=== PATIENT | male | born 1925 | race Caucasian/White ===

== ENCOUNTER 2016-09-28 15:31 | Inpatient (IN) | payer OTHER ==
[~2016-09-28] VITALS: Ht 188 cm; Wt 89.5 kg
[2016-09-28] MEDS ORDERED: SODIUM CHLORIDE 0.9% 1000ML 1,000 ML IV SCH ×3 (15:44→23:30)
[2016-09-28] MEDS ORDERED: AMLO-110 (16:09)
[2016-09-28] MEDS ORDERED: GLIP2.5T11 (16:09)
[2016-09-28] MEDS ORDERED: ACT30 (16:09)
[2016-09-28] MEDS ORDERED: METO25TA56 (16:09)
[2016-09-28] MEDS ORDERED: ACET325T96 PO (16:09)
[2016-09-28] MEDS ORDERED: SIMV10TA2 (16:09)
[2016-09-28] MEDS ORDERED: LISI10TA (16:09)
[2016-09-28] MEDS ORDERED: IBUP-103 PO (16:09)
[2016-09-28] MEDS ORDERED: FURO20TA (16:09)
[2016-09-28] MEDS ORDERED: POTA10CA28 (16:09)
[2016-09-28] MEDS ORDERED: HYT/2 (16:09)
--- NOTE | 2016-09-28 16:10 | EMERGENCY ROOM VISIT NOTE ---
History Report prepared by Kt: Oly Hobbs Under the Supervision of: Dr. Rio West M.D. First contact with patient: 15:39 Chief Complaint: UNRESPONSIVE Stated Complaint: ALTERED MENTAL STATUS History of Present Illness The patient is an 88 year old male who presents to the Emergency Room with AMS. EMS reports that he was found today by his son at around 1330 on the floor of his home. The patient lives home alone after he was 4 months ago. His son notes that he had been doing well lately. Yesterday at 2030, the patient's sister saw the patient at which time he was well and acting normally. The patient's son went to visit him today and looked through the window to see he was unconscious. He called EMS and they broke down the door and brought him to the ED. The EMS note that he was unresponsive and in rapid A fib. He was incontinent. His sugar was found to be in the 500s. According to the son, he has a history of type 2 diabetes and he sometimes does not take his medications. The history is limited due to the patient's AMS. 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 Past Medical & Surgical Medical Problems: (1) Acute ischemic stroke (2) Diabetes mellitus Family History Noncontributory secondary to age. Social History Marital Status: Housing Status: lives alone Occupation Status: retired Current/Historical Medications Scheduled PRN Acetaminophen Tab (Tylenol), 650 MG PO Q6 PRN for Pain Ibuprofen Tab (Advil), 200-600 MG PO Q4H PRN for Pain Miscellaneous Medications Amlodipine (Norvasc) Furosemide (Lasix) Glipizide (Glipizide Er) Lisinopril (Prinivil) Metoprolol Tartrate (Lopressor) (Lopressor) Pioglitazone (Actos) Potassium Chloride (Micro-K Ext Rel) Simvastatin (Zocor) Terazosin Hcl (Hytrin) Allergies Coded Allergies: No Known Allergies (Unverified , 09/28/16) Physical Exam Vital Signs Date Time Temp Pulse Resp B/P (MAP) Pulse Ox O2 Delivery O2 Flow Rate FiO2 09/28/16 18:16 113 17 145/94 98 09/28/16 18:11 114 22 95 09/28/16 18:06 121 16 97 09/28/16 18:01 111 15 97 09/28/16 17:56 111 16 97 09/28/16 17:51 113 12 95 09/28/16 17:46 94 16 96 09/28/16 17:41 111 21 97 09/28/16 17:36 117 19 94 09/28/16 17:32 146/83 09/28/16 17:31 105 17 98 09/28/16 17:26 116 22 97 09/28/16 17:21 108 22 97 09/28/16 17:16 107 18 97 09/28/16 17:11 107 15 97 09/28/16 17:06 108 10 97 09/28/16 17:02 154/100 09/28/16 17:01 116 23 97 09/28/16 16:56 113 19 97 09/28/16 16:51 105 16 98 09/28/16 16:46 104 17 97 09/28/16 16:41 120 14 98 09/28/16 16:37 146/95 09/28/16 16:36 103 17 96 09/28/16 16:31 110 17 97 09/28/16 16:26 112 18 96 09/28/16 16:21 106 17 96 09/28/16 16:16 118 18 96 09/28/16 16:16 107 09/28/16 16:07 151/115 09/28/16 16:06 110 16 151/115 96 Room Air 09/28/16 15:40 96 Room Air 09/28/16 15:40 37.7 124 18 168/101 98 Room Air Physical Exam GENERAL: Patient is awake, no response to verbal stimuli. SKIN: No erythema, pallor, cyanosis or rash. Small abrasion to the right hip. HEENT: Normal head, pupils equal, reactive to light and accommodation. Left gaze preference. Oral cavity and posterior pharynx appear normal. Neck: Without adenopathy, no neck vein distention. LUNGS: Clear to auscultation. No wheezes, no rales, no rhonchi. HEART: No murmurs. No gallops. No rubs ABDOMEN: No masses, no rebound, no hepatomegaly or splenomegaly. EXTREMITIES: 2-3 day old abrasion to the right foot, abrasion to the right knee. No pedal or pretibial edema. NEUROLOGIC: Right facial paralysis. Flaccid right arm and right leg, minimal movement of left arm and left leg. Medical Decision & Procedures ER Provider Diagnostic Interpretation: Radiology results as stated below per my review and radiologist interpretation: HEAD CT NONCONTRAST CT DOSE: 537.48 mGy.cm HISTORY: Altered mental status. Stroke TECHNIQUE: Multiaxial CT images of the head were performed without the use of intravenous contrast. Automated exposure control was utilized for this study. Comparison: None. Findings: Mild mucosal thickening within the right maxillary sinus and ethmoid air cells. The mastoid air cells are clear. The calvarium and skull base are intact. Right-sided scalp and facial subcutaneous edema or swelling. Small hypodensity within the left posterior occipital lobe likely represents an old infarct. No acute hemorrhage. Hypodensity within the left basal ganglia, left internal capsule, and left subinsular cortex which extend into the left posterior frontal lobe. This is consistent with a acute to subacute left MCA territory infarct. No acute hemorrhage identified. Mild mass effect along the left lateral ventricle. No significant midline shift. Impression: 1. Hypodense area within the left frontotemporal region and left basal ganglia consistent with an acute to subacute left MCA territory infarct. 2. Small old infarct within the left occipital lobe. 3. No acute hemorrhage identified. 4. Right scalp/facial subcutaneous edema/swelling. Electronically signed by: Saman Hood M.D. 09/28/2016 4:18 PM Dictated Date/Time: 09/28/2016 4:13 PM Laboratory Results 09/28/16 16:10 Red Blood Count 5.00, Mean Corpuscular Volume 91.0, Mean Corpuscular Hemoglobin 31.8, Mean Corpuscular Hemoglobin Concent 34.9, Mean Platelet Volume 11.3, Neutrophils (%) (Auto) 90.3, Lymphocytes (%) (Auto) 5.0, Monocytes (%) (Auto) 4.3, Eosinophils (%) (Auto) 0.0, Basophils (%) (Auto) 0.1, Neutrophils # (Auto) 13.77, Lymphocytes # (Auto) 0.76, Monocytes # (Auto) 0.66, Eosinophils # (Auto) 0.00, Basophils # (Auto) 0.01 09/28/16 16:10 Test 09/28/16 15:59 09/28/16 16:10 09/28/16 17:35 Bedside Prothrombin Time INR 1.2 (0.9-1.1) White Blood Count 15.24 K/uL (4.8-10.8) Red Blood Count 5.00 M/uL (4.7-6.1) Hemoglobin 15.9 g/dL (14.0-18.0) Hematocrit 45.5 % (42-52) Mean Corpuscular Volume 91.0 fL (80-100) Mean Corpuscular Hemoglobin 31.8 pg (25-34) Mean Corpuscular Hemoglobin Concent 34.9 g/dl (32-36) Platelet Count 199 K/uL (130-400) Mean Platelet Volume 11.3 fL (7.4-10.4) Neutrophils (%) (Auto) 90.3 % Lymphocytes (%) (Auto) 5.0 % Monocytes (%) (Auto) 4.3 % Eosinophils (%) (Auto) 0.0 % Basophils (%) (Auto) 0.1 % Neutrophils # (Auto) 13.77 K/uL (1.4-6.5) Lymphocytes # (Auto) 0.76 K/uL (1.2-3.4) Monocytes # (Auto) 0.66 K/uL (0.11-0.59) Eosinophils # (Auto) 0.00 K/uL (0-0.5) Basophils # (Auto) 0.01 K/uL (0-0.2) RDW Standard Deviation 43.6 fL (36.4-46.3) RDW Coefficient of Variation 13.1 % (11.5-14.5) Immature Granulocyte % (Auto) 0.3 % Immature Granulocyte # (Auto) 0.04 K/uL (0.00-0.02) Prothrombin Time 11.4 SECONDS (9.0-12.0) Prothromb Time International Ratio 1.1 (0.9-1.1) Activated Partial Thromboplast Time 30.6 SECONDS (21.0-31.0) Partial Thromboplastin Ratio 1.2 Urine Color YELLOW Urine Appearance CLOUDY (CLEAR) Urine pH 5.0 (4.5-7.5) Urine Specific Wrens 1.026 (1.000-1.030) Urine Protein 2+ (NEG) Urine Glucose (UA) 3+ (NEG) Urine Ketones 1+ (NEG) Urine Occult Blood 3+ (NEG) Urine Nitrite NEG (NEG) Urine Bilirubin NEG (NEG) Urine Urobilinogen NEG (NEG) Urine Leukocyte Esterase SMALL (NEG) Urine WBC (Auto) >30 /hpf (0-5) Urine RBC (Auto) 5-10 /hpf (0-4) Urine Hyaline Casts (Auto) 5-10 /lpf (0-5) Urine Epithelial Cells (Auto) 10-20 /lpf (0-5) Urine Bacteria (Auto) 4+ (NEG) Anion Gap 11.0 mmol/L (3-11) Estimated GFR () 34.0 Estimated GFR (Non- 29.3 BUN/Creatinine Ratio 15.2 (10-20) Calcium Level 9.3 mg/dl (8.5-10.1) Total Creatine Kinase 1681 U/L (39-308) Creatine Kinase MB 14.2 ng/ml (0.5-3.6) Creatine Kinase MB Ratio 0.8 (0-3.0) Troponin I 0.016 ng/ml (0-0.045) Beta-Hydroxybutyric Acid 6.79 mg/dL (0.2-2.81) Bedside Glucose 272 mg/dl (70-99) Laboratory results as stated above per my review. Medications Administered Medications (Trade) Dose Ordered Sig/Tova Route Start Time Stop Time Status Last Admin Dose Admin Sodium Chloride 1,000 ml @ 50 mls/hr Q20H IV 09/28/16 15:44 10/28/16 15:43 09/28/16 16:27 50 MLS/HR Insulin Human Regular (novoLIN-R U-100 PER UNIT) 10 units NOW STAT SC 09/28/16 16:43 09/28/16 16:44 DC 09/28/16 16:53 10 UNITS Ceftriaxone Sodium (Rocephin Inj) 1 gm NOW STAT IV 09/28/16 17:20 09/28/16 17:22 DC 09/28/16 17:43 1 GM ECG Indication: altered mental status Rate (beats per minute): 132 Rhythm: atrial fibrillation Findings: no acute ischemic change, other (no PVC) ED Course 1540: Past medical records reviewed. The patient was evaluated in room C7. A complete history and physical examination was performed. 1544: NSS 1000 ml @ 50 mls/hr IV. 1643: Insulin Human Regular 10 units SC. 1646: I reevaluated the patient. I spoke with the family about the results and treatment plan. They verbalized understanding and agreement. The patient will be evaluated for further management. 1718: I discussed the patient's case with Vianca Yadav. The patient will be evaluated for further management. 1720: Rocephin Inj 1 gm IV. Medical Decision Nurses notes reviewed. Differential diagnosis includes but is not limited to: TIA, CVA, diabetes out of control, DKA, metabolic disorder, hemorrhagic stroke, brain neoplasm. Medication Reconciliation: I attest that I have personally reviewed the patient' s current medication list. Blood Pressure Screening: Patient was found to have an elevated blood pressure and will follow up with the dividend clerk for recheck and further treatment. The patient was found down in his home earlier today. He arrived approximately 19 hours after his last well-known time. The patient may have eaten breakfast this morning but that remains uncertain. The patient has left gaze preference. He has no movement of his right arm and right leg. He also appears to have a right facial droop. The patient does not respond to verbal command. CT reveals a basilar acute versus subacute stroke. Multiple labs, EKG and urinalysis were performed. The patient also appears to have urinary tract infection. His blood sugar is significantly elevated. He was given subcutaneous insulin. The patient had blood cultures performed prior to administration of Rocephin. I discussed care with the patient's family and with the hospitalist. Consults Time Called: 1710 Consulting Physician: Vianca Yadav jennifer Returned Call: 1718 I discussed the patient's case with her. The patient will be evaluated for further management. Impression Primary Impression: CVA (cerebral vascular accident) Additional Impressions: Diabetes mellitus out of control UTI (urinary tract infection) Critical Care I have personally spent greater than 35 minutes of critical care time in the direct management of this patient. This includes bedside care, interpretation of diagnostic studies, and testing, discussion with consultants, patient, and family members, and other required patient management activities. This 35 minutes is in excess of all separately billable procedures. Scribe Attestation The scribe's documentation has been prepared under my direction and personally reviewed by me in its entirety. I confirm that the note above accurately reflects all work, treatment, procedures, and medical decision making performed by me. Departure Information Dispostion Being Evaluated By Hospitalist Patient Instructions My [facility] Stroke History Time Last Known Well 2030 Stroke t-PA Criteria Reviewed Does NOT meet criteria for t-PA Reason t-PA Not Given Treatment not indicated Extended Window (3-4.5 hour) History of diabetes AND stroke Problem Qualifiers
--- NOTE | 2016-09-28 16:19 | DIAGNOSTIC IMAGING REPORT ---
HEAD CT NONCONTRAST CT DOSE: 537.48 mGy.cm HISTORY: Altered mental status. Stroke TECHNIQUE: Multiaxial CT images of the head were performed without the use of intravenous contrast. Automated exposure control was utilized for this study. Comparison: None. Findings: Mild mucosal thickening within the right maxillary sinus and ethmoid air cells. The mastoid air cells are clear. The calvarium and skull base are intact. Right-sided scalp and facial subcutaneous edema or swelling. Small hypodensity within the left posterior occipital lobe likely represents an old infarct. No acute hemorrhage. Hypodensity within the left basal ganglia, left internal capsule, and left subinsular cortex which extend into the left posterior frontal lobe. This is consistent with a acute to subacute left MCA territory infarct. No acute hemorrhage identified. Mild mass effect along the left lateral ventricle. No significant midline shift. Impression: 1. Hypodense area within the left frontotemporal region and left basal ganglia consistent with an acute to subacute left MCA territory infarct. 2. Small old infarct within the left occipital lobe. 3. No acute hemorrhage identified. 4. Right scalp/facial subcutaneous edema/swelling. Electronically signed by: Saman Hood M.D. 09/28/2016 4:18 PM Dictated Date/Time: 09/28/2016 4:13 PM
[2016-09-28 16:23] LABS: BASO % 0.1 %; BASO ABS # 0.01 K/uL (0-0.2); COMPLETE YES; HEMATOCRIT 45.5 % (42-52); IG% 0.3 %; LYMPH ABS # 0.76 K/uL (1.2-3.4); MEAN CORPUSCULAR HEMOGLOBIN 31.8 pg (25-34); MEAN CORPUSCULAR HGB CONC 34.9 g/dl (32-36); MEAN PLATELET VOLUME 11.3 fL (7.4-10.4); MONO % 4.3 %; NEUT % 90.3 %; PLATELET COUNT 199 K/uL (130-400); WHITE BLOOD COUNT 15.24 K/uL (4.8-10.8)
[2016-09-28 16:33] LABS: INR 1.1 (0.9-1.1); PARTIAL THROMBOPLASTIN RATIO 1.2; PROTHROMBIN TIME (PATIENT) 11.4 SECONDS (9.0-12.0)
[2016-09-28 16:39] LABS: BLOOD UREA NITROGEN 30 mg/dl (7-18); BUN/CREATININE RATIO 15.2 (10-20); CALCIUM 9.3 mg/dl (8.5-10.1); CARBON DIOXIDE 23 mmol/L (21-32); CHLORIDE 105 mmol/L (98-107); GLUCOSE 311 mg/dl (70-99); POTASSIUM 4.7 mmol/L (3.5-5.1); SODIUM 139 mmol/L (136-145)
[2016-09-28 16:42] LABS: URINE APPEARANCE CLOUDY (CLEAR); URINE BILIRUBIN NEG (NEG); URINE COLOR YELLOW; URINE NITRITE NEG (NEG); URINE SPECIFIC GRAVITY 1.026 (1.000-1.030); UROBILINOGEN NEG (NEG)
[2016-09-28] MEDS ORDERED: NovoLIN-R INSULIN PER UNIT CHARGE SC STA (16:43)
[2016-09-28 16:47] LABS: MANUAL MICROSCOPIC REQUIRED? NO; REVIEW REQ? NO
[2016-09-28 16:53] LABS: BETA-HYDROXYBUTYRATE 6.79 mg/dL (0.2-2.81); CKMB/CK RATIO 0.8 (0-3.0)
[2016-09-28] MEDS ORDERED: CEFTRIAXONE SOD INJ 1 GM ADDVIAL IV STA (17:20)
[2016-09-28 19:41] VITALS: BP 161/97; PULSE 136; TEMP 36.6; O2SAT 97; BMI 24.2
[2016-09-28] MEDS ORDERED: PHARMACIST DISCHARGE MED REC CONSULT PRN (20:30)
[2016-09-28] MEDS ORDERED: ASPIRIN 300 MG SUPP PR STA (20:34)
[2016-09-28] MEDS ORDERED: PHARMACY GLYCEMIC MGMT CONSULT SCH (20:41)
[2016-09-28] MEDS ORDERED: DEXTROSE 50% 50 ML SYR IV PRN (20:45)
[2016-09-28] MEDS ORDERED: GLUCOSE 40% GEL 15 GM TUBE PO PRN (20:45)
[2016-09-28] MEDS ORDERED: GLUCAGON FOR INJ 1 MG VIAL SQ PRN (20:45)
[2016-09-28] MEDS ORDERED: GLUCOSE 10 TABS/TUBE PO PRN (20:45)
[2016-09-28] MEDS ORDERED: INSULIN ASPART 100 UNITS/ML 3 ML PEN SC SCH (21:00)
--- NOTE | 2016-09-28 22:04 | Pharmacy Progress Note ---
Glycemic Control Intl Consult Date of Service Sep 28, 2016. Scope Glycemic Pharmacist consulted by Dr Bowling on 09/28/16 for glycemic control and to write orders per [facility] inpatient glycemic control protocol Objective Weight (Kilograms): 85.400 Accuchecks BSG (last 24hrs): Test 09/28/16 15:52 09/28/16 16:10 09/28/16 17:35 09/28/16 21:01 Bedside Glucose 435 mg/dl (70-99) 272 mg/dl (70-99) 250 mg/dl (70-99) Random Glucose 311 mg/dl (70-99) Laboratory Data (last 24hrs) Test 09/28/16 16:10 09/28/16 16:19 Anion Gap 11.0 mmol/L BUN/Creatinine Ratio 15.2 Blood Urea Nitrogen 30 mg/dl Creatinine 2.00 mg/dl Potassium Level 4.7 mmol/L Sodium Level 139 mmol/L White Blood Count 15.24 K/uL Red Blood Count 5.00 M/uL Hemoglobin 15.9 g/dL Hematocrit 45.5 % Mean Corpuscular Volume 91.0 fL Mean Corpuscular Hemoglobin 31.8 pg Mean Corpuscular Hemoglobin Concent 34.9 g/dl Platelet Count 199 K/uL Mean Platelet Volume 11.3 fL Neutrophils (%) (Auto) 90.3 % Lymphocytes (%) (Auto) 5.0 % Monocytes (%) (Auto) 4.3 % Eosinophils (%) (Auto) 0.0 % Basophils (%) (Auto) 0.1 % Neutrophils # (Auto) 13.77 K/uL Lymphocytes # (Auto) 0.76 K/uL Monocytes # (Auto) 0.66 K/uL Eosinophils # (Auto) 0.00 K/uL Basophils # (Auto) 0.01 K/uL HbA1c Test 09/28/16 16:19 Recent Pertinent Medications Outpatient Anti-diabetic Regimen: * glipizide 10 mg bidm, Actos 15 mg daily (patient doesn't always remember to take) * A1c = pending 09/28/16 The patient is currently receiving: * Basal insulin: none at this time * Correctional Insulin: Novolog Correction per scale ACHS Goal Range: Low 100 mg/dL - High 140 mg/dL Correction Factor: 50 mg/dL/unit * Prandial insulin: Per carb ratio of 1 unit per 16 grams CHO consumed * Oral Agents: none Risk Factors for Insulin Resistance: * Steroids: no * Infection: UTI, on Rocephin * Pressors: no * IVF: NS @100 ml/hr * Recent Surgery: no * Diet: npo * Mechanical Ventilation: no Assessment & Plan ASSESSMENT: * ADA & AACE recommend a goal blood sugar range 140-180 mg/dl for the majority of critically ill & non-critically ill patients. However, more stringent targets may be selected in individual cases. * 88 yo type 2 diabetic, admitted with stroke, hyperglycemia, UTI. A1c pending to assess recent glycemic control. Will hold po antidiabetics, and start weight- based Novolog coverage. Will reassess in am. PLAN FOR INPATIENT GLYCEMIC CONTROL: * Holding outpatient oral diabetes medications * No Basal insulin at this time * Correctional Insulin with NOVOLOG per scale ACHS or Q6hrs while NPO * Goal Range: Low 100 mg/dL - High 140 mg/dL * Correction Factor: 25 mg/dL/unit * Nutritional / Prandial insulin per carb ratio of 1 unit per 9 grams CHO consumed * Please note that the plan above was derived based on current level of insulin resistance and hospital stress. These recommendations are appropriate for inpatient admission only. Plan of care upon discharge will need to be reassessed to avoid potential outpatient hypo/hyperglycemia. Thank you.
[2016-09-28] MEDS: SODIUM CHLORIDE 0.9% 1000ML 1,000 ML IV SCH (22:07)
--- NOTE | 2016-09-28 23:03 | History and Physical ---
History & Physical Date & Time of Service: Sep 28, 2016 at 20:57 Chief Complaint: Acute Ischemic Stroke Primary Care Physician: No Doctor, Assigned History of Present Illness Source: family, hospital records 88 yo M from [facility] who sees physicians at the [facility] in [place] only, and not regularly per son, presents to the ER via EMS after being found down on the floor of his home alert but altered and waving his left arm in the air. He had noticed some urine present on the floor. CT head reveals a left frontotemporal and basal ganglia stroke. Per his oldest son, he was last seen yesterday around 8:30pm until he was found in this condition at 1:30pm the next day (today). He lives alone and had recently lost his in May. Per his son , he is active and was just driving yesterday and was cutting the grass earlier this week. Son states that although his father had diabetes and probably other conditions, he never took medications for anything and chose not to see a doctor. He states that although he went to the [facility] in [place], he was only seen for his eyes and this was a rare occasion. There is a list of medications that was pulled from the cabinet by EMS, however, there are no dosages on the med list. The family suspects that he gets his medications at the [facility] in [facility]. When I called to verify when he last filled meds, they were already closed. Therefore, medication reconciliation was unable to be performed this evening. I also requested records from the [facility] in [place]. The family reports that the patient was recently feeling well and not showing any symptoms or having issues prior to last night. They are unsure of any medication or food allergies but don't think he has any. Past Medical/Surgical History Medical Problems: (1) Atrial fibrillation Status: Chronic (2) Diabetes mellitus Status: Chronic (3) History of BPH Status: Chronic (4) Hypertension Status: Chronic Family History Stroke or transient ischemic attack in father Social History unable to obtain social history as pt unable to communicate Marital Status: Housing status: lives alone Occupational Status: retired Immunizations History of Influenza Vaccine: Unknown History of Tetanus Vaccine?: Unknown History of Pneumococcal: Unknown History of Hepatitis B Vaccine: Unknown Multi-Drug Resistant Organisms History of MDRO: No Allergies Coded Allergies: No Known Allergies (Unverified , 09/28/16) Home Medications Scheduled PRN Acetaminophen Tab (Tylenol), 650 MG PO Q6 PRN for Pain Ibuprofen Tab (Advil), 200-600 MG PO Q4H PRN for Pain Miscellaneous Medications Amlodipine (Norvasc) Furosemide (Lasix) Glipizide (Glipizide Er) Lisinopril (Prinivil) Metoprolol Tartrate (Lopressor) (Lopressor) Pioglitazone (Actos) Potassium Chloride (Micro-K Ext Rel) Simvastatin (Zocor) Terazosin Hcl (Hytrin) Review of Systems unable to obtain ROS as pt unable to communicate Physical Exam Vital Signs Date Time Temp Pulse Resp B/P (MAP) Pulse Ox O2 Delivery O2 Flow Rate FiO2 09/28/16 19:41 36.6 136 20 161/97 97 Room Air 09/28/16 19:21 123 12 97 09/28/16 19:02 172/91 09/28/16 18:51 112 15 97 09/28/16 18:32 165/102 09/28/16 18:21 114 20 98 09/28/16 18:16 113 17 145/94 98 09/28/16 18:11 114 22 95 09/28/16 18:06 121 16 97 09/28/16 18:01 111 15 97 09/28/16 17:56 111 16 97 09/28/16 17:51 113 12 95 09/28/16 17:46 94 16 96 09/28/16 17:41 111 21 97 09/28/16 17:36 117 19 94 09/28/16 17:32 146/83 09/28/16 17:31 105 17 98 09/28/16 17:26 116 22 97 09/28/16 17:21 108 22 97 09/28/16 17:16 107 18 97 09/28/16 17:11 107 15 97 09/28/16 17:06 108 10 97 09/28/16 17:02 154/100 09/28/16 17:01 116 23 97 09/28/16 16:56 113 19 97 09/28/16 16:51 105 16 98 09/28/16 16:46 104 17 97 09/28/16 16:41 120 14 98 09/28/16 16:37 146/95 09/28/16 16:36 103 17 96 09/28/16 16:31 110 17 97 09/28/16 16:26 112 18 96 09/28/16 16:21 106 17 96 09/28/16 16:16 118 18 96 09/28/16 16:16 107 09/28/16 16:07 151/115 09/28/16 16:06 110 16 151/115 96 Room Air 09/28/16 15:40 96 Room Air 09/28/16 15:40 37.7 124 18 168/101 98 Room Air GEN: WNWD, expressive and receptive aphasia, appears alert but unable to communicate or follow instructions HEENT: NC/AT, PERRL, normal sclerae/conjunctivae, R facial droop CARDIO: tachy, S1/2 heard without m/g/r LUNGS: CTA bilaterally, no crackles, rales or wheezes, good diaphragmatic excursion ABD: soft, non-distended, no rebound or guarding, +BS EXTREMITY: RP and DP palpable 2+ bilat, no LE swelling or edema, extremities are warm and well-perfused NEURO: expressive/receptive aphasia, Leftward gaze, R facial droop, R arm/leg is flacid, able to move L arm and leg but cannot follow instructions to assess strength. Cannot assess sensation or coordination 2/2 AMS. Knee reflex 2/4 bilaterally with neg babinski. MUSC: could not assess strength but clear weakness of the right side. SKIN: warm and dry, small 1cmm abrasion on the lower leg. Diagnostics Laboratory Results Results Past 24 Hours Test 09/28/16 15:52 09/28/16 15:59 09/28/16 16:10 09/28/16 16:19 Range/Units Bedside Glucose 435 70-99 mg/dl Bedside Prothrombin Time INR 1.2 0.9-1.1 White Blood Count 15.24 4.8-10.8 K/uL Red Blood Count 5.00 4.7-6.1 M/uL Hemoglobin 15.9 14.0-18.0 g/dL Hematocrit 45.5 42-52 % Mean Corpuscular Volume 91.0 80-100 fL Mean Corpuscular Hemoglobin 31.8 25-34 pg Mean Corpuscular Hemoglobin Concent 34.9 32-36 g/dl Platelet Count 199 130-400 K/uL Mean Platelet Volume 11.3 7.4-10.4 fL Neutrophils (%) (Auto) 90.3 % Lymphocytes (%) (Auto) 5.0 % Monocytes (%) (Auto) 4.3 % Eosinophils (%) (Auto) 0.0 % Basophils (%) (Auto) 0.1 % Neutrophils # (Auto) 13.77 1.4-6.5 K/uL Lymphocytes # (Auto) 0.76 1.2-3.4 K/uL Monocytes # (Auto) 0.66 0.11-0.59 K/uL Eosinophils # (Auto) 0.00 0-0.5 K/uL Basophils # (Auto) 0.01 0-0.2 K/uL RDW Standard Deviation 43.6 36.4-46.3 fL RDW Coefficient of Variation 13.1 11.5-14.5 % Immature Granulocyte % (Auto) 0.3 % Immature Granulocyte # (Auto) 0.04 0.00-0.02 K/uL Prothrombin Time 11.4 9.0-12.0 SECONDS Prothromb Time International Ratio 1.1 0.9-1.1 Activated Partial Thromboplast Time 30.6 21.0-31.0 SECONDS Partial Thromboplastin Ratio 1.2 Urine Color YELLOW Urine Appearance CLOUDY CLEAR Urine pH 5.0 4.5-7.5 Urine Specific [place] 1.026 1.000-1.030 Urine Protein 2+ NEG Urine Glucose (UA) 3+ NEG Urine Ketones 1+ NEG Urine Occult Blood 3+ NEG Urine Nitrite NEG NEG Urine Bilirubin NEG NEG Urine Urobilinogen NEG NEG Urine Leukocyte Esterase SMALL NEG Urine WBC (Auto) >30 0-5 /hpf Urine RBC (Auto) 5-10 0-4 /hpf Urine Hyaline Casts (Auto) 5-10 0-5 /lpf Urine Epithelial Cells (Auto) 10-20 0-5 /lpf Urine Bacteria (Auto) 4+ NEG Sodium Level 139 136-145 mmol/L Potassium Level 4.7 3.5-5.1 mmol/L Chloride Level 105 98-107 mmol/L Carbon Dioxide Level 23 21-32 mmol/L Anion Gap 11.0 3-11 mmol/L Blood Urea Nitrogen 30 7-18 mg/dl Creatinine 2.00 0.60-1.40 mg/dl Estimated GFR () 34.0 Estimated GFR (Non- 29.3 BUN/Creatinine Ratio 15.2 10-20 Random Glucose 311 70-99 mg/dl Calcium Level 9.3 8.5-10.1 mg/dl Total Creatine Kinase 1681 39-308 U/L Creatine Kinase MB 14.2 0.5-3.6 ng/ml Creatine Kinase MB Ratio 0.8 0-3.0 Troponin I 0.016 0-0.045 ng/ml Beta-Hydroxybutyric Acid 6.79 0.2-2.81 mg/dL Test 09/28/16 17:35 Range/Units Bedside Glucose 272 70-99 mg/dl Microbiology Results 09/28/16 Blood Culture, Received Pending 09/28/16 Blood Culture, Received Pending 09/28/16 Urine Culture, Received Pending Diagnostic Radiology HEAD CT NONCONTRAST CT DOSE: 537.48 mGy.cm HISTORY: Altered mental status. Stroke TECHNIQUE: Multiaxial CT images of the head were performed without the use of intravenous contrast. Automated exposure control was utilized for this study. Comparison: None. Findings: Mild mucosal thickening within the right maxillary sinus and ethmoid air cells. The mastoid air cells are clear. The calvarium and skull base are intact. Right-sided scalp and facial subcutaneous edema or swelling. Small hypodensity within the left posterior occipital lobe likely represents an old infarct. No acute hemorrhage. Hypodensity within the left basal ganglia, left internal capsule, and left subinsular cortex which extend into the left posterior frontal lobe. This is consistent with a acute to subacute left MCA territory infarct. No acute hemorrhage identified. Mild mass effect along the left lateral ventricle. No significant midline shift. Impression: 1. Hypodense area within the left frontotemporal region and left basal ganglia consistent with an acute to subacute left MCA territory infarct. 2. Small old infarct within the left occipital lobe. 3. No acute hemorrhage identified. 4. Right scalp/facial subcutaneous edema/swelling. EKG Afib 132, no ST changes Impression Assessment and Plan 88 yo diabetic man presents after suffering an acute L MCA stroke 1. L MCA stroke-risk in setting of atrial fibrillation, and unknown if this is a new diagnosis at this time. ASA MT was given, statin contraindicated until formal swallow eval performed. PT/OT/TRANSITION SPECIALIST evals were ordered, Neuro consulted. HOB >30 degrees. Permissive HTN. Neurochecks ordered q2hrs, turn q2hrs. TPA not indicated as unknown time of onset of symptoms. Pt was clearly on the floor for a while as he was in a puddle of urine and with an elevated CK. TTE with bubble study ordered in am. Of interest, pt was noted to have old infarction in occipital lobe on CT. Muñoz cath was placed. Reassess CT head in am. 2. Atrial fibrillation with RVR-uncertain if this is a new diagnosis. Per med list which cannot be reconciled at this time and is likely outdated, pt was taking a baby ASA only. Anticoagulation in this patient is contraindicated at this time, however, out of concern for poss hemorrhagic transformation. After bolusing some IVF and correcting dehydration, will consider Lopressor IV for rate control as needed. 3. UTI-empirically treating with Rocephin until culture results return. Blood cultures are also pending, however, patient is not septic. 4. DKA-likely 2/2 noncompliance with medications per son. Insulin was given SQ in the ER but very little IVF. Will start more aggressive IVF repletion at this time and continue overnight as tolerated. 5. ARIEL- uncertain what baseline creatinine is, however, this fits the clinical dehydration picture above. Cont IVF per above. 6. HTN-allow permissive HTN at this time. 7. Leukocytosis 2/2 infection/inflammation above. 8. BPH- muñoz in place. DVT prophy-SCDs FULL CODE-per oldest son who is unsure who is dedicated POA in his family. Dispo-to telemetry floor Daiana Bowling DO [facility] Hospitalist Level of Care Telemetry Advanced Directives Existing Living Will: No Existing Power of Front Desk Lead: No Resuscitation Status FULL RESUSCITATION VTE Prophylaxis VTE Risk Assessment Done? Y/N: Yes Risk Level: High Given or contraindicated: SCD's
[2016-09-28] MEDS ORDERED: METOPROLOL TARTRATE 1 MG/ML VIAL IV STA (23:15)
[2016-09-28 23:30] LABS: CKMB/CK RATIO 0.6 (0-3.0)
[2016-09-29] VITALS (7 sets, daily range): BP systolic 115–158; BP diastolic 69–92; PULSE 97–127; TEMP 36.6–37.3; O2SAT 95–98; Ht 188 cm; Wt 89.5 kg
[2016-09-29] MEDS: SODIUM CHLORIDE 0.9% 1000ML 1,000 ML IV SCH (03:59)
[2016-09-29 04:54] LABS: BASO % 0.1 %; BASO ABS # 0.02 K/uL (0-0.2); COMPLETE YES; EOS % 0.1 %; HEMATOCRIT 45.6 % (42-52); IG% 0.3 %; LYMPH % 9.5 %; LYMPH ABS # 1.41 K/uL (1.2-3.4); MEAN CELL VOLUME 90.1 fL (80-100); MEAN CORPUSCULAR HEMOGLOBIN 30.4 pg (25-34); MEAN CORPUSCULAR HGB CONC 33.8 g/dl (32-36); MEAN PLATELET VOLUME 10.6 fL (7.4-10.4); MONO % 7.1 %; NEUT % 82.9 %; PLATELET COUNT 221 K/uL (130-400); RED BLOOD COUNT 5.06 M/uL (4.7-6.1); WHITE BLOOD COUNT 14.77 K/uL (4.8-10.8)
[2016-09-29] MEDS ORDERED: METOPROLOL TARTRATE 1 MG/ML VIAL IV PRN (05:00)
[2016-09-29 05:12] LABS: BUN/CREATININE RATIO 16.4 (10-20); CALCIUM 8.4 mg/dl (8.5-10.1); CREATININE 1.5 mg/dl (0.60-1.40); POTASSIUM 4.1 mmol/L (3.5-5.1)
[2016-09-29 05:39] LABS: CHOLESTEROL/HDL RATIO 4.8; CKMB/CK RATIO 0.5 (0-3.0)
[2016-09-29] MEDS: INSULIN ASPART 100 UNITS/ML 3 ML PEN SC SCH ×4 (06:00→18:00)
[2016-09-29 07:03] LABS: ESTIMATED AVERAGE GLUCOSE 263 mg/dl; HA1C FLAG Normal (Normal)
--- NOTE | 2016-09-29 07:03 | DIAGNOSTIC IMAGING REPORT ---
CT HEAD WITHOUT CONTRAST (CT) CLINICAL HISTORY: large MCA stroke, follow up scan to re-evaluate COMPARISON STUDY: 09/28/2016 TECHNIQUE: Axial CT of the brain is performed from the vertex to the skull base. IV contrast was not administered for this examination. CT DOSE: 614.27 mGy.cm FINDINGS: There is a large infarct in the distribution of the left middle cerebral artery. There are foci of minimal increased attenuation raising the possibility of petechial hemorrhage. No large hematoma is visualized. There is mild mass effect with effacement of the left lateral ventricle. There is no significant midline shift. There are patchy white matter hypodensities likely on a small vessel basis. There is an old left occipital lobe infarct. There is no evidence of pathologic ventricular dilatation. There is no evidence of acute sinusitis There is equivocal visualization of a left middle cerebral artery thrombus. IMPRESSION: 1. Subacute left MCA infarct. Stable mild mass effect. 2. Possible left MCA artery thrombus. 3. Possible foci of petechial hemorrhage within the infarct. No large hemorrhage is visualized. Electronically signed by: Blu Das M.D. 09/29/2016 7:01 AM Dictated Date/Time: 09/29/2016 6:57 AM
--- NOTE | 2016-09-29 08:51 | ECHOCARDIOGRAM REPORT ---
*NOTICE TO RECEIVING LIBERTARIAN AGENCY This information is strictly Confidential and protected under [place] law. [place] law prohibits you from making any further disclosure of this information unless further disclosure is expressly permitted by the written consent of the person to whom it pertains or is authorized by law. A general authorization for the release of medical or other information is not sufficient for this purpose. Hospital accepts no responsibility if the information is made available to any other person, INCLUDING THE PATIENT. Interpretation Summary * Name: AYSHA SAINI Study Date: 09/29/2016 07:21 AM * Patient Location: C.2T\S\S229\S\2 HR: 117 * : 09/30/1927 (M/d/yyyy) Gender: Male Height: 74 in * Age: 88 yrs Ethnicity: CA Weight: 188 lb * Ordering Physician: Daiana Bowling * Referring Physician: Self, Referred * Performed By: Susan Teresa RCS * * Reason For Study: A-FIB / STROKE * BSA: 2.1 m2 * -- Conclusions -- * The left ventricular wall motion is normal. * Ejection Fraction = 55-60%. * Aortic valve sclerosis mild, without significant aortic valvular stenosis. * Doppler findings do not suggest pulmonary hypertension. * There is no evidence of atrial septal defect, but resolution does not allow assessment for a patent foramen ovale. Procedure Details * A complete two-dimensional transthoracic echocardiogram was performed (2D, M-mode, Doppler and color flow Doppler). * A saline contrast injection was performed to assess for cardiac shunting. * The injection was performed through an intravenous line in the left arm. * The attending nurse who injected the saline contrast was DEYANIRA PALMER RN. * A total of 20 cc of agitated saline was given. Left Ventricle * The left ventricle is normal in size. * There is normal left ventricular wall thickness. * Left ventricular systolic function is normal. * Ejection Fraction = 55-60%. * The left ventricular wall motion is normal. Right Ventricle * The right ventricle is normal size. * The right ventricular systolic function is normal as assessed by tricuspid annular plane systolic excursion (TAPSE) (normal >1.5 cm). Atria * The left atrium is moderately dilated. * Right atrial size is normal. * There is no evidence of atrial septal defect, but resolution does not allow assessment for a patent foramen ovale. Mitral Valve * The mitral valve is normal. * There is no mitral valve stenosis. * Significant mitral regurgitation is absent. Tricuspid Valve * The tricuspid valve is normal. * There is no tricuspid stenosis. * Significant tricuspid regurgitation is absent. * Doppler findings do not suggest pulmonary hypertension. Aortic Valve * The aortic valve is trileaflet. * Aortic valve sclerosis mild, without significant aortic valvular stenosis. * Aortic stenosis is absent. * There is no significant aortic regurgitation. Pulmonic Valve * The pulmonary valve is not well seen, but the Doppler examination is normal without significant regurgitation or stenosis. Great Vessels * The aortic root and proximal ascending aorta are normal sized. Pericardium/Pleural * There is no pericardial effusion. Great Vessels * Normal inferior vena cava diameter and respiratory variation suggests normal central venous pressure. * Normal inferior vena cava size and collapsability with sniff indicates a normal right atrial pressure of 3 mmHg MMode 2D Measurements and Calculations IVSd 1.1 cm IVSs 1.6 cm LVIDd 4.3 cm LVIDs 3.4 cm LVPWd 1.2 cm LVPWs 1.6 cm IVS/LVPW 0.90 FS 22.2 % EDV(Teich) 83.2 ml ESV(Teich) 45.8 ml EF(Teich) 45.0 % EDV(cubed) 79.7 ml ESV(cubed) 37.6 ml EF(cubed) 52.8 % % IVS thick 47.9 % % LVPW thick 28.9 % LV mass(C)d 178.1 grams LV mass(C)dI 84.1 grams/m\S\2 LV mass(C)s 205.9 grams LV mass(C)sI 97.3 grams/m\S\2 SV(Teich) 37.4 ml SI(Teich) 17.7 ml/m\S\2 SV(cubed) 42.1 ml SI(cubed) 19.9 ml/m\S\2 Ao root diam 2.8 cm Ao root area 6.0 cm\S\2 ACS 2.0 cm LA dimension 4.3 cm LA/Ao 1.5 LVOT diam 2.1 cm LVOT area 3.4 cm\S\2 LVAd ap4 24.8 cm\S\2 LVLd ap4 7.5 cm EDV(MOD-sp4) 65.5 ml EDV(sp4-el) 69.8 ml LVAs ap4 16.5 cm\S\2 LVLs ap4 6.7 cm ESV(MOD-sp4) 32.9 ml ESV(sp4-el) 34.8 ml EF(MOD-sp4) 49.7 % EF(sp4-el) 50.1 % LVAd ap2 27.0 cm\S\2 LVLd ap2 7.3 cm EDV(MOD-sp2) 80.9 ml EDV(sp2-el) 85.2 ml LVAs ap2 22.2 cm\S\2 LVLs ap2 7.7 cm ESV(MOD-sp2) 51.9 ml ESV(sp2-el) 54.3 ml EF(MOD-sp2) 35.9 % EF(sp2-el) 36.3 % LVLd %diff -2.27 % EDV(MOD-bp) 73.5 ml LVLs %diff 13.4 % ESV(MOD-bp) 44.1 ml EF(MOD-bp) 39.9 % SV(MOD-sp4) 32.6 ml SI(MOD-sp4) 15.4 ml/m\S\2 SV(MOD-sp2) 29.0 ml SI(MOD-sp2) 13.7 ml/m\S\2 SV(MOD-bp) 29.3 ml SI(MOD-bp) 13.9 ml/m\S\2 SV(sp4-el) 35.0 ml SI(sp4-el) 16.5 ml/m\S\2 SV(sp2-el) 30.9 ml SI(sp2-el) 14.6 ml/m\S\2 Doppler Measurements and Calculations MV E max sawyer 99.8 cm/sec MV P1/2t max sawyer 100.0 cm/sec MV P1/2t 65.3 msec MVA(P1/2t) 3.4 cm\S\2 MV dec slope 449.0 cm/sec\S\2 MV dec time 0.19 sec Ao V2 max 133.0 cm/sec Ao max PG 7.1 mmHg Ao max PG (full) 5.3 mmHg LEANNE(V,A) 1.7 cm\S\2 LEANNE(V,D) 1.7 cm\S\2 LV V1 max PG 1.8 mmHg LV V1 max 66.3 cm/sec
[2016-09-29] MEDS ORDERED: ASPIRIN 300 MG SUPP PR SCH (09:00)
--- NOTE | 2016-09-29 11:28 | Pharmacy Progress Note ---
Glycemic Control: Progress Nt Date of Service Sep 29, 2016. Scope Glycemic Pharmacist consulted for glycemic control and to write orders per [facility] inpatient glycemic control protocol. Objective Accuchecks BSG (last 24hrs): Test 09/28/16 15:52 09/28/16 16:10 09/28/16 17:35 09/28/16 21:01 Bedside Glucose 435 mg/dl (70-99) 272 mg/dl (70-99) 250 mg/dl (70-99) Random Glucose 311 mg/dl (70-99) Test 09/29/16 00:07 09/29/16 04:40 09/29/16 07:03 Bedside Glucose 103 mg/dl (70-99) 126 mg/dl (70-99) Random Glucose 116 mg/dl (70-99) Laboratory Data (last 24hrs) HbA1c: Test 09/28/16 16:19 Hemoglobin A1c 10.8 % (4.5-5.6) H Recent Pertinent Medications Outpatient Anti-diabetic Regimen: * glipizide 10 mg bidm, Actos 15 mg daily (patient doesn't always remember to take) The patient is currently receiving: * Basal insulin: None at this time * Correctional Insulin: Novolog Correction per scale ACHS Goal Range: Low 110 mg/dL - High 140 mg/dL Correction Factor: 25 mg/dL/unit * Prandial insulin: Per carb ratio of 1 unit per 9 grams CHO consumed * Oral Agents: on hold for admission Risk Factors for Insulin Resistance: * Infection * Diet Assessment & Plan ASSESSMENT: * Pt receiving weight based SQ bolus insulin regimen for hyperglycemia secondary to baseline DM (outpatient regimen on hold) & stress/infection * Weight and stress of 2 bolus insulin parameters initiated on admission * Patient is currently receiving an average of ~0 units of insulin per day while NPO * 0 units of basal insulin --> none ordered * 0 units of prandial/correctional insulin --> pt NPO * BSGs ranging 116 - 130 over the past 24hrs {this is after severe hyperglycemia corrected in ER} * Changes needed to insulin regimen: * AM Fasting BSG = 116 mg/dl. This is in range w/o additional exogenous insulin. No basal insulin needed at this time. * Have not been able to assess bolus insulin parameters as pt NPO therefore no changes needed to CF/CR * ADA & AACE recommend a goal blood sugar range 140-180 mg/dl for the majority of critically ill & non-critically ill patients. However, more stringent targets may be selected in individual cases. PLAN FOR INPATIENT GLYCEMIC CONTROL: No changes needed to regimen at this time. * Hold outpatient oral diabetes medications * Basal insulin * None needed * Bolus insulin: * NovoLog per scale ACHS or Q6hrs while NPO * Goal Range: Low 110 mg/dL - High 140 mg/dL * Correction Factor: 25 mg/dL/unit * Nutritional / Prandial insulin per carb ratio of 1 unit per 9 grams CHO consumed RECOMMENDATIONS FOR DISCHARGE: * A1c = 10.8% on 09/28/16 * Assuming this result is not totally reliable as current BSGs do not match this A1c. A1c may be artificially inflated secondary to recent hyperglycemia? * Based on age and co-morbidities recommended A1c ~ 8-8.5% * Recommend repeating A1c and titrating outpatient regimen accordingly. * Please note that the plan above was derived based on current level of insulin resistance and hospital stress. These recommendations are appropriate for inpatient admission only. Plan of care upon discharge will need to be reassessed to avoid potential outpatient hypo/hyperglycemia. Thank you.
--- NOTE | 2016-09-29 15:50 | Neurology Consultation ---
Neurology Consultation Date of Consultation: Sep 29, 2016. Attending Physician: Jazzy Colon M.D. Primary Care Physician: No Doctor, Assigned Reason for Consultation: acute stroke with afib History of Present Illness Source: patient, hospital records Pee is a 88 year old male who has a PMH afib, HTN, DM. He goes to the [facility] in [place] for his care. but according to chart the son reports he does not follow regularly. He was found down on the floor of his home waving his left arm in the air. He had noticed some urine present on the floor. CT head reveals a left frontotemporal and basal ganglia stroke. he was last seen yesterday around 8:30pm until he was found in this condition at 1:30pm the next day. He lives alone and had recently lost his in May. He is usually very active still driving and mowing his lawn. His son states he is DM but never took anything for it he also has a vision issues which he knows is rare. It is unclear if he was taking any of the medications he was prescribed. Records were requested from the [facility] in [place] a copy of his medications were also requested from [facility]. Past Medical/Surgical History Medical Problems: (1) CVA (cerebral vascular accident) Status: Acute (2) Diabetes mellitus out of control Status: Acute (3) UTI (urinary tract infection) Status: Acute Social History Marital Status: Housing Status: lives alone Occupation Status: retired Allergies Coded Allergies: No Known Allergies (Unverified , 09/28/16) Current Inpatient Medications Current Inpatient Medications Medications (Trade) Dose Ordered Sig/Tova Route Start Time Stop Time Status Last Admin Dose Admin Miscellaneous Information (Pharmacist Discharge Med Rec Consult) 1 ea UD PRN N/A 09/28/16 20:30 10/28/16 20:29 Ceftriaxone Sodium 1000 mg/ Dextrose 60 ml @ 100 mls/hr DAILY@1700 IV 09/29/16 17:00 10/03/16 16:59 Aspirin (Aspirin Supp) 300 mg DAILY ND 09/29/16 09:00 10/29/16 08:59 09/29/16 08:30 300 MG Glucose (Glucose 40% Gel) 15-30 GRAMS 15 GRAMS... UD PRN PO 09/28/16 20:45 10/28/16 20:44 Glucose (Glucose Chew Tab) 4-8 Tablets 4 Tabl... UD PRN PO 09/28/16 20:45 10/28/16 20:44 Dextrose (Dextrose 50% 50ML Syringe) 25-50ML OF 50% DW IV FOR... UD PRN IV 09/28/16 20:45 10/28/16 20:44 Glucagon (Glucagon Inj) 1 mg UD PRN SQ 09/28/16 20:45 10/28/16 20:44 Miscellaneous Information (Consult Glycemic Management Pharmacy) 1 ea UD N/A 09/28/16 20:41 10/28/16 20:40 Insulin Aspart (novoLOG ASPART) SLIDING SCALE If C... Q6 SC 09/29/16 00:00 10/29/16 00:00 Metoprolol Tartrate (Lopressor Iv) 5 mg Q6H PRN IV 09/29/16 05:00 10/29/16 04:59 09/29/16 09:00 5 MG Physical Exam Vital Signs (Past 24 Hrs): Date Time Temp Pulse Resp B/P (MAP) Pulse Ox O2 Delivery O2 Flow Rate FiO2 09/29/16 12:00 Room Air 09/29/16 10:58 37.0 110 21 115/72 (86) 98 Room Air 09/29/16 09:00 125 134/84 09/29/16 08:00 Room Air 09/29/16 07:20 36.9 118 20 134/84 (101) 97 Room Air 09/29/16 04:50 36.9 127 18 117/82 (94) 96 Room Air 09/29/16 04:00 Room Air 09/29/16 00:35 37.3 117 18 158/92 (114) 96 Room Air 09/29/16 00:02 Room Air 09/28/16 23:51 117 09/28/16 19:41 36.6 136 20 161/97 97 Room Air 09/28/16 19:21 123 12 97 09/28/16 19:02 172/91 09/28/16 18:51 112 15 97 09/28/16 18:32 165/102 09/28/16 18:21 114 20 98 09/28/16 18:16 113 17 145/94 98 09/28/16 18:11 114 22 95 09/28/16 18:06 121 16 97 09/28/16 18:01 111 15 97 09/28/16 17:56 111 16 97 09/28/16 17:51 113 12 95 09/28/16 17:46 94 16 96 09/28/16 17:41 111 21 97 09/28/16 17:36 117 19 94 09/28/16 17:32 146/83 09/28/16 17:31 105 17 98 09/28/16 17:26 116 22 97 09/28/16 17:21 108 22 97 09/28/16 17:16 107 18 97 09/28/16 17:11 107 15 97 09/28/16 17:06 108 10 97 09/28/16 17:02 154/100 09/28/16 17:01 116 23 97 09/28/16 16:56 113 19 97 09/28/16 16:51 105 16 98 09/28/16 16:46 104 17 97 09/28/16 16:41 120 14 98 09/28/16 16:37 146/95 09/28/16 16:36 103 17 96 09/28/16 16:31 110 17 97 09/28/16 16:26 112 18 96 09/28/16 16:21 106 17 96 09/28/16 16:16 118 18 96 09/28/16 16:16 107 09/28/16 16:07 151/115 09/28/16 16:06 110 16 151/115 96 Room Air 09/28/16 15:40 96 Room Air 09/28/16 15:40 37.7 124 18 168/101 98 Room Air Physical Exam: Constitutional: appearance ill appearing Ears, Nose, Mouth and Throat: mucous membranes moist, no injection and skin normal, eyes normal Cardiovascular:irregular Respiratory: clear to auscultation (CTA) and no rales, rhonchi or wheeze Musculoskeletal: 2+ pitting edema Skin: no stigmata of neurocutaneous disease noted and normal and intact Eyes: looks in direction of voice but does not follow commands NEUROLOGIC EXAMINATION: Mental status: Alert and minimally interactive Oriented when asked where he does not respond, does no know why he is here Speech does not communicate through speech Cranial Nerves right sided facial droop and eye lid droop Reflexes: Deep tendon reflexes were decreased throughout Sensory: withdraws with deep stimulation of LE L>R Coordination: raise R arm above head drop without control, left arm raise and sustains with gravity Gait/Stance: Posture lying in bed Motor: no motor response with command Strength: left arm maintains against gravity right arm no motor control. bilateral LE with withdrawal with deep stimulation Laboratory Results Past 24 Hours: 09/29/16 04:40 Red Blood Count 5.06, Mean Corpuscular Volume 90.1, Mean Corpuscular Hemoglobin 30.4, Mean Corpuscular Hemoglobin Concent 33.8, Mean Platelet Volume 10.6, Neutrophils (%) (Auto) 82.9, Lymphocytes (%) (Auto) 9.5, Monocytes (%) (Auto) 7.1, Eosinophils (%) (Auto) 0.1, Basophils (%) (Auto) 0.1, Neutrophils # (Auto) 12.22, Lymphocytes # (Auto) 1.41, Monocytes # (Auto) 1.05, Eosinophils # (Auto) 0.02, Basophils # (Auto) 0.02 09/29/16 04:40 Test 09/28/16 15:59 09/28/16 16:10 09/28/16 16:19 09/28/16 23:50 Bedside Prothrombin Time INR 1.2 (0.9-1.1) Prothrombin Time 11.4 SECONDS (9.0-12.0) Prothromb Time International Ratio 1.1 (0.9-1.1) Activated Partial Thromboplast Time 30.6 SECONDS (21.0-31.0) Partial Thromboplastin Ratio 1.2 Urine Color YELLOW Urine Appearance CLOUDY (CLEAR) Urine pH 5.0 (4.5-7.5) Urine Specific [place] 1.026 (1.000-1.030) Urine Protein 2+ (NEG) Urine Glucose (UA) 3+ (NEG) Urine Ketones 1+ (NEG) Urine Occult Blood 3+ (NEG) Urine Nitrite NEG (NEG) Urine Bilirubin NEG (NEG) Urine Urobilinogen NEG (NEG) Urine Leukocyte Esterase SMALL (NEG) Urine WBC (Auto) >30 /hpf (0-5) Urine RBC (Auto) 5-10 /hpf (0-4) Urine Hyaline Casts (Auto) 5-10 /lpf (0-5) Urine Epithelial Cells (Auto) 10-20 /lpf (0-5) Urine Bacteria (Auto) 4+ (NEG) Beta-Hydroxybutyric Acid 6.79 mg/dL (0.2-2.81) Thyroid Stimulating Hormone (TSH) 1.040 uIu/ml (0.300-4.500) Estimated Average Glucose 263 mg/dl Hemoglobin A1c 10.8 % (4.5-5.6) Urine Random Creatinine 77.0 mg/dl Urine Random Sodium 101 mEq/L Test 09/29/16 04:40 09/29/16 11:33 White Blood Count 14.77 K/uL (4.8-10.8) Red Blood Count 5.06 M/uL (4.7-6.1) Hemoglobin 15.4 g/dL (14.0-18.0) Hematocrit 45.6 % (42-52) Mean Corpuscular Volume 90.1 fL (80-100) Mean Corpuscular Hemoglobin 30.4 pg (25-34) Mean Corpuscular Hemoglobin Concent 33.8 g/dl (32-36) Platelet Count 221 K/uL (130-400) Mean Platelet Volume 10.6 fL (7.4-10.4) Neutrophils (%) (Auto) 82.9 % Lymphocytes (%) (Auto) 9.5 % Monocytes (%) (Auto) 7.1 % Eosinophils (%) (Auto) 0.1 % Basophils (%) (Auto) 0.1 % Neutrophils # (Auto) 12.22 K/uL (1.4-6.5) Lymphocytes # (Auto) 1.41 K/uL (1.2-3.4) Monocytes # (Auto) 1.05 K/uL (0.11-0.59) Eosinophils # (Auto) 0.02 K/uL (0-0.5) Basophils # (Auto) 0.02 K/uL (0-0.2) RDW Standard Deviation 43.3 fL (36.4-46.3) RDW Coefficient of Variation 13.2 % (11.5-14.5) Immature Granulocyte % (Auto) 0.3 % Immature Granulocyte # (Auto) 0.05 K/uL (0.00-0.02) Anion Gap 8.0 mmol/L (3-11) Est Creatinine Clear Calc Drug Dose 41.1 ml/min Estimated GFR () 48.2 Estimated GFR (Non- 41.6 BUN/Creatinine Ratio 16.4 (10-20) Calcium Level 8.4 mg/dl (8.5-10.1) Total Creatine Kinase 1120 U/L (39-308) Creatine Kinase MB 5.4 ng/ml (0.5-3.6) Creatine Kinase MB Ratio 0.5 (0-3.0) Troponin I 0.080 ng/ml (0-0.045) Triglycerides Level 128 mg/dl (0-150) Cholesterol Level 219 mg/dl (0-200) HDL Cholesterol 46 mg/dl LDL Cholesterol, Calculated 147 mg/dl VLDL Cholesterol, Calculated 26 mg/dl Cholesterol/HDL Ratio 4.8 Bedside Glucose 132 mg/dl (70-99) Imaging TTE- The left ventricular wall motion is normal. * Ejection Fraction = 55-60%. * Aortic valve sclerosis mild, without significant aortic valvular stenosis. * Doppler findings do not suggest pulmonary hypertension. * There is no evidence of atrial septal defect, but resolution does not allow assessment for a patent foramen ovale. Impression 88 year old male with history DM, HTN, afib -acute stroke deep right hemiparesis Plan 1. permissive hypertension 2. would hold aspirin for now 3. repeat CT head in 2 day if no hemorrhagic conversion consider aspirin 4. PT/OT/speech for discharge needs 5. family input for direction of care 6. deep hemiparesis recovery is likely poor 7. further recommendations to follow I have seen and discussed above patient with Dr Nevin Mon, neurology Pt seen and examined. CT head shows large l MCA infarct with hemor transformation. Exam, pt awake, alert,global aphasia, no gaze pref, min withdrawal RLE. Imp clinically and radiologically large L MCA infarct with hem transformation likely related to afib. Pt at risk for increased sx of mass effect for the next 48 hours or so. Hold asa at present. Carotid US. Spoke with daughter about rescuscitation and she wants full code. Explained the likelihood of poor neurologic outcome from this stroke. ASHLEY Mon MD
[2016-09-29] MEDS: CEFTRIAXONE SOD INJ 1,000 MG in DEXTROSE 5% 50ML 50 ML IV SCH (17:15)
--- NOTE | 2016-09-29 21:04 | Progress Note ---
Internal Med Progress Note Date of Service: Sep 29, 2016. Provider Documentation: SUBJECTIVE: remains non verbal OBJECTIVE: Vital Signs-as noted below Exam: General-marked rt facial droop Lungs-diminished Heart-regular Abdomen-soft Neuro-dense rt sided hemiparesis , rt facial droop, non verbal , unable to follow command Lab data as noted below. ASSESSMENT & PLAN: 88 year old male with history DM, HTN, afib -acute stroke deep right hemiparesis ACUTE CVA : found unresponsive at home CT head : 1. Hypodense area within the left frontotemporal region and left basal ganglia consistent with an acute to subacute left MCA territory infarct. 2. Small old infarct within the left occipital lobe. 3. No acute hemorrhage identified. 4. Right scalp/facial subcutaneous edema/swelling. appreciate input form Neurology very poor prognosis given dense hemiparesis, severe dysphagia repeat CT head shows: 1. Subacute left MCA infarct. Stable mild mass effect. 2. Possible left MCA artery thrombus. 3. Possible foci of petechial hemorrhage within the infarct. No large hemorrhage is visualized. -hold Aspirin -avoid anticoagulation -allow permissive HTN in setting of acute CVA -will repeat CT head in AM to assess stability vs progression of intracranial hge SEVERE DYSPHAGIA : due to above appreciate speech eval : Impression : The patient has poor oral motor control combined with no gag reflex and very weak airway protection. Not yet ready for oral intake. pt will be kept strict NPO cont aspiration precaution poor prognosis UTI : Urine culture E Coli on Rocephin IV DVT PROPHYLAXIS high risk due to dense hemiparesis scd and teds avoid pharmacological anticoagulation for CT finding of intracranial hge DISPOSITION poor Prognosis , dense paralysis with severe Dysphagia will need rehab vs long term care pharmacist placement Vital Signs: Date Time Temp Pulse Resp B/P (MAP) Pulse Ox O2 Delivery O2 Flow Rate FiO2 09/30/16 19:43 Room Air 09/30/16 19:37 37.1 142 16 154/91 (112) 96 Room Air 09/30/16 16:00 Room Air 09/30/16 15:11 37.6 122 16 164/92 (116) 96 Room Air 09/30/16 12:00 Room Air 09/30/16 11:43 36.6 112 19 159/91 (113) 98 Room Air 09/30/16 08:23 36.8 118 19 178/64 (102) 96 Room Air 09/30/16 08:00 Room Air 09/30/16 06:08 127 09/30/16 04:13 36.9 119 19 145/82 (103) 95 Room Air 09/30/16 04:00 95 Room Air 09/30/16 00:01 95 Room Air 09/29/16 23:59 37.3 114 19 147/69 (95) 95 Room Air Lab Results: Results Past 24 Hours Test 09/30/16 00:18 09/30/16 00:39 09/30/16 05:46 09/30/16 11:15 Range/Units White Blood Count 11.94 4.8-10.8 K/uL Red Blood Count 4.80 4.7-6.1 M/uL Hemoglobin 15.0 14.0-18.0 g/dL Hematocrit 44.2 42-52 % Mean Corpuscular Volume 92.1 80-100 fL Mean Corpuscular Hemoglobin 31.3 25-34 pg Mean Corpuscular Hemoglobin Concent 33.9 32-36 g/dl Platelet Count 185 130-400 K/uL Mean Platelet Volume 10.7 7.4-10.4 fL Neutrophils (%) (Auto) 70.7 % Lymphocytes (%) (Auto) 19.3 % Monocytes (%) (Auto) 9.0 % Eosinophils (%) (Auto) 0.4 % Basophils (%) (Auto) 0.3 % Neutrophils # (Auto) 8.44 1.4-6.5 K/uL Lymphocytes # (Auto) 2.31 1.2-3.4 K/uL Monocytes # (Auto) 1.07 0.11-0.59 K/uL Eosinophils # (Auto) 0.05 0-0.5 K/uL Basophils # (Auto) 0.04 0-0.2 K/uL RDW Standard Deviation 45.4 36.4-46.3 fL RDW Coefficient of Variation 13.4 11.5-14.5 % Immature Granulocyte % (Auto) 0.3 % Immature Granulocyte # (Auto) 0.03 0.00-0.02 K/uL Sodium Level 144 136-145 mmol/L Potassium Level 4.0 3.5-5.1 mmol/L Chloride Level 111 98-107 mmol/L Carbon Dioxide Level 22 21-32 mmol/L Anion Gap 11.0 3-11 mmol/L Blood Urea Nitrogen 25 7-18 mg/dl Creatinine 1.40 0.60-1.40 mg/dl Est Creatinine Clear Calc Drug Dose 43.2 ml/min Estimated GFR () 52.0 Estimated GFR (Non- 44.9 BUN/Creatinine Ratio 17.8 10-20 Random Glucose 152 70-99 mg/dl Calcium Level 8.3 8.5-10.1 mg/dl Magnesium Level 2.1 1.8-2.4 mg/dl Total Creatine Kinase 471 39-308 U/L Bedside Glucose 171 131 149 70-99 mg/dl Test 09/30/16 16:03 09/30/16 20:30 Range/Units Bedside Glucose 209 282 70-99 mg/dl
[2016-09-30] VITALS (8 sets, daily range): BP systolic 145–178; BP diastolic 64–92; PULSE 111–142; TEMP 36.6–37.6; O2SAT 95–98
[2016-09-30] MEDS ORDERED: SODIUM CHLORIDE 0.45% 1000ML 1,000 ML IV ONE
[2016-09-30 00:29] LABS: BASO % 0.3 %; BASO ABS # 0.04 K/uL (0-0.2); COMPLETE YES; EOS % 0.4 %; HEMATOCRIT 44.2 % (42-52); IG% 0.3 %; LYMPH % 19.3 %; LYMPH ABS # 2.31 K/uL (1.2-3.4); MEAN CELL VOLUME 92.1 fL (80-100); MEAN CORPUSCULAR HEMOGLOBIN 31.3 pg (25-34); MEAN CORPUSCULAR HGB CONC 33.9 g/dl (32-36); MEAN PLATELET VOLUME 10.7 fL (7.4-10.4); NEUT % 70.7 %; PLATELET COUNT 185 K/uL (130-400); WHITE BLOOD COUNT 11.94 K/uL (4.8-10.8)
[2016-09-30] MEDS: INSULIN ASPART 100 UNITS/ML 3 ML PEN SC SCH ×5 (00:43→23:23)
[2016-09-30 00:50] LABS: BUN/CREATININE RATIO 17.8 (10-20); CALCIUM 8.3 mg/dl (8.5-10.1); CREATININE 1.4 mg/dl (0.60-1.40); MAGNESIUM 2.1 mg/dl (1.8-2.4)
[2016-09-30] MEDS ORDERED: DIGOXIN IV 250 MCG in SYRINGE 9 ML IV ONE ×2 (01:15→05:45)
[2016-09-30] MEDS: SODIUM CHLORIDE 0.45% 1000ML 1,000 ML IV SCH ×2 (05:24→21:17)
--- NOTE | 2016-09-30 08:57 | DIAGNOSTIC IMAGING REPORT ---
CT HEAD WITHOUT CONTRAST (CT) CLINICAL HISTORY: Stroke. Follow-up study. COMPARISON STUDY: No previous studies for comparison. TECHNIQUE: Axial CT of the brain is performed from the vertex to the skull base. IV contrast was not administered for this examination. CT DOSE: FINDINGS: There is evidence for a large left middle cerebral artery territory infarct with involvement of portions of the left temporal parietal and frontal lobes. There is also evidence for left basal ganglia involvement. There are foci of increased attenuation consistent with minimal petechial hemorrhage. No large hematoma is visualized. There is mass effect with effacement of the left lateral ventricle. There are patchy white matter hypodensities likely on a small vessel basis. There is no evidence of pathologic ventricular dilatation. There is no evidence of acute sinusitis IMPRESSION: 1. Subacute left MCA infarct with mild mass effect 2. Increasing foci of petechial hemorrhage. No large hemorrhage is visualized. Electronically signed by: Blu Das M.D. 09/30/2016 8:56 AM Dictated Date/Time: 09/30/2016 8:53 AM
--- NOTE | 2016-09-30 13:45 | Pharmacy Progress Note ---
Glycemic: Assessment & Plan Date of Service Sep 30, 2016. Assessment & Plan The patient is currently receiving 0-2 units of insulin per day. BSGs ranging 140- 171 mg/dl over the past 24hrs. No changes to regimen warranted at this time. Pt now ordered a diet so may need to make adjustments to regimen in response- will monitor. CONTINUE CURRENT PLAN FOR INPATIENT GLYCEMIC CONTROL: * Basal insulin: none * Correctional Insulin: Novolog Correction per scale ACHS Goal Range: Low 110 mg/dL - High 140 mg/dL Correction Factor: 25 mg/dL/unit * Prandial insulin: Per carb ratio of 1 unit per 9 grams CHO consumed BSGs continue to improve, no changes needed to inpatient regimen at this time. Pharmacy will continue to monitor patient daily and write orders per [facility] inpatient glycemic control protocol. Thanks. * Please note that the plan above was derived based on current level of insulin resistance and hospital stress. These recommendations are appropriate for inpatient admission only. Plan of care upon discharge will need to be reassessed to avoid potential outpatient hypo/hyperglycemia.
--- NOTE | 2016-09-30 15:44 | Neurology Progress Notes ---
Neurology Progress Note Date of Service Sep 30, 2016. Subjective Pee is a 88 year old male who has a PMH afib, HTN, DM. He goes to the [facility] in [place] for his care. but according to chart the son reports he does not follow regularly. He was found down on the floor of his home waving his left arm in the air. He had noticed some urine present on the floor. CT head reveals a left frontotemporal and basal ganglia stroke. he was last seen yesterday around 8:30pm until he was found in this condition at 1:30pm the next day. He lives alone and had recently lost his in May. He is usually very active still driving and mowing his lawn. His son states he is DM but never took anything for it he also has a vision issues which he knows is rare. It is unclear if he was taking any of the medications he was prescribed. Records were requested from the [facility] in [place] a copy of his medications were also requested from [facility]. Pee is sitting up in bed today and more alert. He is minimally following commands. There is no family in room. Objective Date Time Temp Pulse Resp B/P (MAP) Pulse Ox O2 Delivery O2 Flow Rate FiO2 09/30/16 12:00 Room Air 09/30/16 11:43 36.6 112 19 159/91 (113) 98 Room Air 09/30/16 08:23 36.8 118 19 178/64 (102) 96 Room Air 09/30/16 08:00 Room Air 09/30/16 06:08 127 09/30/16 04:13 36.9 119 19 145/82 (103) 95 Room Air 09/30/16 04:00 95 Room Air 09/30/16 00:01 95 Room Air 09/29/16 23:59 37.3 114 19 147/69 (95) 95 Room Air 09/29/16 20:00 Room Air 09/29/16 19:27 36.9 97 18 144/74 (97) 95 Room Air 09/29/16 16:00 Room Air Last 24 Hours Test 09/29/16 18:17 09/30/16 00:18 09/30/16 00:39 09/30/16 05:46 Bedside Glucose 140 mg/dl 171 mg/dl 131 mg/dl White Blood Count 11.94 K/uL Red Blood Count 4.80 M/uL Hemoglobin 15.0 g/dL Hematocrit 44.2 % Mean Corpuscular Volume 92.1 fL Mean Corpuscular Hemoglobin 31.3 pg Mean Corpuscular Hemoglobin Concent 33.9 g/dl Platelet Count 185 K/uL Mean Platelet Volume 10.7 fL Neutrophils (%) (Auto) 70.7 % Lymphocytes (%) (Auto) 19.3 % Monocytes (%) (Auto) 9.0 % Eosinophils (%) (Auto) 0.4 % Basophils (%) (Auto) 0.3 % Neutrophils # (Auto) 8.44 K/uL Lymphocytes # (Auto) 2.31 K/uL Monocytes # (Auto) 1.07 K/uL Eosinophils # (Auto) 0.05 K/uL Basophils # (Auto) 0.04 K/uL RDW Standard Deviation 45.4 fL RDW Coefficient of Variation 13.4 % Immature Granulocyte % (Auto) 0.3 % Immature Granulocyte # (Auto) 0.03 K/uL Sodium Level 144 mmol/L Potassium Level 4.0 mmol/L Chloride Level 111 mmol/L Carbon Dioxide Level 22 mmol/L Anion Gap 11.0 mmol/L Blood Urea Nitrogen 25 mg/dl Creatinine 1.40 mg/dl Est Creatinine Clear Calc Drug Dose 43.2 ml/min Estimated GFR () 52.0 Estimated GFR (Non- 44.9 BUN/Creatinine Ratio 17.8 Random Glucose 152 mg/dl Calcium Level 8.3 mg/dl Magnesium Level 2.1 mg/dl Total Creatine Kinase 471 U/L Test 09/30/16 11:15 Bedside Glucose 149 mg/dl Imaging: repeat CT head- Subacute left MCA infarct with mild mass effect Increasing foci of petechial hemorrhage. No large hemorrhage is visualized. Exam: Physical Exam: Constitutional: appearance ill appearing Ears, Nose, Mouth and Throat: mucous membranes moist, no injection and skin normal, right ptosis Cardiovascular: irregular irregular Respiratory: clear to auscultation (CTA) and no rales, rhonchi or wheeze Musculoskeletal: no peripheral edema and good distal pulses Skin: no stigmata of neurocutaneous disease noted and normal and intact Eyes: follows with eyes but no full EOMI NEUROLOGIC EXAMINATION: Mental status: Alert and minimally interactive does nod head with taking sheet off arm Cranial Nerves right facial droop and right eye ptosis, attempts to close eyes with command Reflexes: Deep tendon reflexes were symmetrical and graded 2/5. Sensory: move right arm withdrawal with deep stimulation, extension of food with leg stimulation Coordination: unable to sustain right arm or leg actively against gravity Gait/Stance: Posture sitting in bed Strength: right arm drops against gravity non controlled, right LE unable to maintain against gravity left hand squeezes when asked to, gives resistance against pull, lifts left leg spontaneously against gravity Current Inpatient Medications Medications (Trade) Dose Ordered Sig/Tova Route Start Time Stop Time Status Last Admin Dose Admin Miscellaneous Information (Pharmacist Discharge Med Rec Consult) 1 UD PRN N/A 09/28/16 20:30 10/28/16 20:29 Ceftriaxone Sodium 1000 mg/ Dextrose 60 ml @ 100 mls/hr DAILY@1700 IV 09/29/16 17:00 10/03/16 16:59 09/29/16 17:15 100 MLS/HR Glucose (Glucose 40% Gel) 15-30 GRAMS 15 GRAMS... UD PRN PO 09/28/16 20:45 10/28/16 20:44 Glucose (Glucose Chew Tab) 4-8 Tablets 4 Tabl... UD PRN PO 09/28/16 20:45 10/28/16 20:44 Dextrose (Dextrose 50% 50ML Syringe) 25-50ML OF 50% DW IV FOR... UD PRN IV 09/28/16 20:45 10/28/16 20:44 Glucagon (Glucagon Inj) 1 mg UD PRN SQ 09/28/16 20:45 10/28/16 20:44 Miscellaneous Information (Consult Glycemic Management Pharmacy) 1 UD N/A 09/28/16 20:41 10/28/16 20:40 Insulin Aspart (novoLOG ASPART) SLIDING SCALE If C... Q6 SC 09/29/16 00:00 10/29/16 00:00 09/30/16 11:35 1 UNITS Sodium Chloride 1,000 ml @ 60 mls/hr [id number] IV 09/30/16 05:00 10/30/16 04:59 09/30/16 05:24 60 MLS/HR Impression 88 year old male with history DM, HTN, afib -acute stroke deep right hemiparesis Plan 1. permissive hypertension 2. would hold aspirin for now 3. repeat CT head in 1 week if no hemorrhagic conversion consider aspirin 4. PT/OT/speech for discharge needs 5. family input for direction of care 6. deep hemiparesis recovery is likely poor 7. MRI would be helpful for extent of brain injury but will not change course of treatment 8. patient is NPO and course of treatment will need to be discussed with POA and if patient has living will I have seen and discussed above patient with Dr Nevin Mon, neurology PT seen and exmained, exam unchanged, Pt still awake, alert, dense aphasia with dense R hemiparesis, minimal withdrawal RUE. CT head increased hemorrhagic transformation.Imp LMCA infarct, likely embolic. Rec carotid US. REc continuing to hold ASA, repeat CT head in 1 week to see if safe to start ASA at that time. ASHLEY Mon MD
[2016-09-30] MEDS: CEFTRIAXONE SOD INJ 1,000 MG in DEXTROSE 5% 50ML 50 ML IV SCH (17:40)
--- NOTE | 2016-09-30 22:12 | Progress Note ---
Internal Med Progress Note Date of Service: Sep 30, 2016. Provider Documentation: SUBJECTIVE: remains non verbal dense rt sided hemiparesis OBJECTIVE: Vital Signs-as noted below Exam: General-marked rt facial droop Lungs-diminished Heart-regular Abdomen-soft Neuro-dense rt sided hemiparesis , rt facial droop, non verbal , unable to follow command Lab data as noted below. ASSESSMENT & PLAN: 88 year old male with history DM, HTN, afib -acute stroke deep right hemiparesis ACUTE CVA : found unresponsive at home CT head : 1. Hypodense area within the left frontotemporal region and left basal ganglia consistent with an acute to subacute left MCA territory infarct. 2. Small old infarct within the left occipital lobe. 3. No acute hemorrhage identified. 4. Right scalp/facial subcutaneous edema/swelling. appreciate input form Neurology very poor prognosis given dense hemiparesis, severe dysphagia repeat CT head shows: 1. Subacute left MCA infarct. Stable mild mass effect. 2. Possible left MCA artery thrombus. 3. Possible foci of petechial hemorrhage within the infarct. No large hemorrhage is visualized. -hold Aspirin -avoid anticoagulation -allow permissive HTN in setting of acute CVA -will repeat CT head in AM shows progression of Petechial hge per Neurology -continue to hold Aspirin repeat CT head in a week if no intracranial Hge noted pt can be started on Aspirin SEVERE DYSPHAGIA : due to above appreciate speech eval : Impression : The patient has poor oral motor control combined with no gag reflex and very weak airway protection. Not yet ready for oral intake. pt is kept strict NPO cont aspiration precaution poor prognosis may need Feeding tube for nutritional support -need discussion with family Need to evaluated Living will -if available if not TF is contemplated and no improvement of neurological symptoms Palliative care /Hospice would be appropriate UTI : Urine culture E Coli on Rocephin IV DVT PROPHYLAXIS high risk due to dense hemiparesis scd and teds avoid pharmacological anticoagulation for CT finding of intracranial hge DISPOSITION poor Prognosis , dense paralysis with severe Dysphagia will need rehab vs halfway placement called [facility] -continues to ring , no voice message option available Vital Signs: Date Time Temp Pulse Resp B/P (MAP) Pulse Ox O2 Delivery O2 Flow Rate FiO2 09/30/16 19:43 Room Air 09/30/16 19:37 37.1 142 16 154/91 (112) 96 Room Air 09/30/16 16:00 Room Air 09/30/16 15:11 37.6 122 16 164/92 (116) 96 Room Air 09/30/16 12:00 Room Air 09/30/16 11:43 36.6 112 19 159/91 (113) 98 Room Air 09/30/16 08:23 36.8 118 19 178/64 (102) 96 Room Air 09/30/16 08:00 Room Air 09/30/16 06:08 127 09/30/16 04:13 36.9 119 19 145/82 (103) 95 Room Air 09/30/16 04:00 95 Room Air 09/30/16 00:01 95 Room Air 09/29/16 23:59 37.3 114 19 147/69 (95) 95 Room Air Lab Results: Results Past 24 Hours Test 09/30/16 00:18 09/30/16 00:39 09/30/16 05:46 09/30/16 11:15 Range/Units White Blood Count 11.94 4.8-10.8 K/uL Red Blood Count 4.80 4.7-6.1 M/uL Hemoglobin 15.0 14.0-18.0 g/dL Hematocrit 44.2 42-52 % Mean Corpuscular Volume 92.1 80-100 fL Mean Corpuscular Hemoglobin 31.3 25-34 pg Mean Corpuscular Hemoglobin Concent 33.9 32-36 g/dl Platelet Count 185 130-400 K/uL Mean Platelet Volume 10.7 7.4-10.4 fL Neutrophils (%) (Auto) 70.7 % Lymphocytes (%) (Auto) 19.3 % Monocytes (%) (Auto) 9.0 % Eosinophils (%) (Auto) 0.4 % Basophils (%) (Auto) 0.3 % Neutrophils # (Auto) 8.44 1.4-6.5 K/uL Lymphocytes # (Auto) 2.31 1.2-3.4 K/uL Monocytes # (Auto) 1.07 0.11-0.59 K/uL Eosinophils # (Auto) 0.05 0-0.5 K/uL Basophils # (Auto) 0.04 0-0.2 K/uL RDW Standard Deviation 45.4 36.4-46.3 fL RDW Coefficient of Variation 13.4 11.5-14.5 % Immature Granulocyte % (Auto) 0.3 % Immature Granulocyte # (Auto) 0.03 0.00-0.02 K/uL Sodium Level 144 136-145 mmol/L Potassium Level 4.0 3.5-5.1 mmol/L Chloride Level 111 98-107 mmol/L Carbon Dioxide Level 22 21-32 mmol/L Anion Gap 11.0 3-11 mmol/L Blood Urea Nitrogen 25 7-18 mg/dl Creatinine 1.40 0.60-1.40 mg/dl Est Creatinine Clear Calc Drug Dose 43.2 ml/min Estimated GFR () 52.0 Estimated GFR (Non- 44.9 BUN/Creatinine Ratio 17.8 10-20 Random Glucose 152 70-99 mg/dl Calcium Level 8.3 8.5-10.1 mg/dl Magnesium Level 2.1 1.8-2.4 mg/dl Total Creatine Kinase 471 39-308 U/L Bedside Glucose 171 131 149 70-99 mg/dl Test 09/30/16 16:03 09/30/16 20:30 Range/Units Bedside Glucose 209 282 70-99 mg/dl
[2016-10-01] VITALS (7 sets, daily range): BP systolic 142–170; BP diastolic 82–99; PULSE 89–117; TEMP 35.9–37.4; O2SAT 97–99
[2016-10-01] MEDS: INSULIN ASPART 100 UNITS/ML 3 ML PEN SC SCH ×4 (06:16→21:03)
[2016-10-01 06:18] LABS: BASO % 0.3 %; BASO ABS # 0.03 K/uL (0-0.2); COMPLETE YES; EOS % 1.5 %; HEMATOCRIT 47.3 % (42-52); IG% 0.3 %; LYMPH % 23.5 %; LYMPH ABS # 2.58 K/uL (1.2-3.4); MEAN CELL VOLUME 91.1 fL (80-100); MEAN CORPUSCULAR HEMOGLOBIN 30.8 pg (25-34); MEAN CORPUSCULAR HGB CONC 33.8 g/dl (32-36); MEAN PLATELET VOLUME 10.6 fL (7.4-10.4); MONO % 9.1 %; NEUT % 65.3 %; PLATELET COUNT 183 K/uL (130-400); RED BLOOD COUNT 5.19 M/uL (4.7-6.1); WHITE BLOOD COUNT 10.98 K/uL (4.8-10.8)
[2016-10-01 06:58] LABS: BUN/CREATININE RATIO 18.5 (10-20); CALCIUM 8.2 mg/dl (8.5-10.1); CREATININE 1.4 mg/dl (0.60-1.40); POTASSIUM 3.6 mmol/L (3.5-5.1)
--- NOTE | 2016-10-01 12:04 | DIAGNOSTIC IMAGING REPORT ---
ULTRASOUND OF THE CAROTID ARTERIES CLINICAL HISTORY: Stroke. COMPARISON STUDY: No priors. TECHNIQUE: Real-time, grayscale, and color Doppler sonography of the carotid arteries is performed. Images are reviewed in the transverse and longitudinal planes. FINDINGS: Blood pressures were not assessed due to the presence of IV catheters. The carotid arteries are patent bilaterally and demonstrate antegrade flow. There is minimal atherosclerotic plaque identified. Normal doppler arterial waveforms are seen throughout. Velocity measurements are listed below. Common carotid peak systolic velocity (cm/sec): RIGHT: 80 LEFT: 83 ICA proximal peak systolic velocity (cm/sec): RIGHT: 51 LEFT: 54 ICA mid peak systolic velocity (cm/sec): RIGHT: 51 LEFT: 57 ICA distal peak systolic velocity (cm/sec): RIGHT: 56 LEFT: 51 ICA/CC peak systolic ratio: RIGHT: 0.7 LEFT: 0.7 Antegrade flow was shown in the vertebral arteries. The external carotid arteries are patent. IMPRESSION: 1. There is no sonographic evidence of hemodynamically significant stenosis in the right or left carotid arterial system. 2. Antegrade flow is shown in the vertebral arteries. Electronically signed by: Smooth De Anda M.D. 10/01/2016 12:03 PM Dictated Date/Time: 10/01/2016 11:46 AM
--- NOTE | 2016-10-01 12:06 | Pharmacy Progress Note ---
Glycemic: Assessment & Plan Date of Service Oct 01, 2016. Assessment & Plan The patient is currently receiving ~11 units of insulin per day. BSGs ranging 131 - 244 mg/dl over the past 24hrs. This is near goal range based on patient age and comorbidities. However, expect BSGs to continue to rise as PO intake increases. A1c is signficiantly elevated at 10.8%, insulin regimen with basal, prandial, and correctional components is preferred to SSI monotherapy. * Basal insulin: Start Lantus 10 units SQ daily (this is extremely conservative @ 0.13 units/kg/day secondary to dysphagia and poor PO intake) * Correctional Insulin: Novolog Correction per scale ACHS Goal Range: Low 110 mg/dL - High 140 mg/dL Correction Factor: 25 mg/dL/unit * Prandial insulin: Per carb ratio of 1 unit per 9 grams CHO consumed Pharmacy will continue to monitor patient daily and write orders per [facility] inpatient glycemic control protocol. Thanks. * Please note that the plan above was derived based on current level of insulin resistance and hospital stress. These recommendations are appropriate for inpatient admission only. Plan of care upon discharge will need to be reassessed to avoid potential outpatient hypo/hyperglycemia.
[2016-10-01] MEDS: SODIUM CHLORIDE 0.45% 1000ML 1,000 ML IV SCH (12:17)
[2016-10-01] MEDS ORDERED: METOPROLOL TARTRATE 25 MG TAB PO ONE (12:53)
--- NOTE | 2016-10-01 13:24 | DIAGNOSTIC IMAGING REPORT ---
VIDEO SWALLOW STUDY CLINICAL HISTORY: Stroke. Aspiration. COMPARISON STUDY: No priors. Fluoroscopy time: 3.7 minutes. FINDINGS: Fluoroscopic guidance was provided to the Department of Speech Pathology in performing a video swallow study. The patient consumed barium-impregnated pudding, honey thick liquid, nectar thick liquid, and thin barium while the swallowing mechanism was observed in real-time. Aspiration was seen with the nectar thick liquid and thin barium textures. No aspiration was seen with the honey thick liquid or the pudding textures. IMPRESSION: 1. Aspiration was seen with the nectar thick liquid and thin barium textures. 2. See speech pathology report for detailed findings and recommendations. Dictated: 10/01/2016 1:03 PM Transcribed: 10/01/2016 1:24 PM [email or web address] Electronically signed by: Smooth De Anda M.D. 10/01/2016 1:42 PM Dictated Date/Time: 10/01/2016 1:03 PM
[2016-10-01] MEDS ORDERED: CLONIDINE HCL 0.1 MG TAB PO PRN (14:15)
--- NOTE | 2016-10-01 14:15 | Progress Note ---
Medicine Progress Note Date & Time of Visit: Oct 01, 2016 at 14:06. Subjective per RN, patient tolerated meal today on exam, patient sleeping, rousable with tactile stimuli follows simple commands denies pain, discomfort Objective Last 8 Hrs Date Time Temp Pulse Resp B/P (MAP) Pulse Ox O2 Delivery O2 Flow Rate FiO2 10/01/16 12:10 Room Air 10/01/16 11:31 36.6 117 17 168/93 (118) 99 Room Air 10/01/16 08:00 Room Air 10/01/16 07:21 36.9 107 18 169/99 (122) 98 Room Air Physical Exam: General- not in distress, no accessory muscle use Head- atraumatic Eyes- EOMI, anicteric Neck- supple, no JVD, no adenopathy, no thyromegaly Lungs- clear breath sounds bilaterally Heart-tachycardic, irregularly irregular rhythm Abdomen- normal bowel sounds, soft, nontender Extremities- no pretibial edema, no calf tenderness; Neuro- alert, follows simple commands aphasic right side 0/5 motor strength left side 5/5 Skin- warm & dry Laboratory Results: Last 24 Hours Test 09/30/16 16:03 09/30/16 20:30 09/30/16 23:19 10/01/16 05:23 Bedside Glucose 209 mg/dl 282 mg/dl 215 mg/dl White Blood Count 10.98 K/uL Red Blood Count 5.19 M/uL Hemoglobin 16.0 g/dL Hematocrit 47.3 % Mean Corpuscular Volume 91.1 fL Mean Corpuscular Hemoglobin 30.8 pg Mean Corpuscular Hemoglobin Concent 33.8 g/dl Platelet Count 183 K/uL Mean Platelet Volume 10.6 fL Neutrophils (%) (Auto) 65.3 % Lymphocytes (%) (Auto) 23.5 % Monocytes (%) (Auto) 9.1 % Eosinophils (%) (Auto) 1.5 % Basophils (%) (Auto) 0.3 % Neutrophils # (Auto) 7.17 K/uL Lymphocytes # (Auto) 2.58 K/uL Monocytes # (Auto) 1.00 K/uL Eosinophils # (Auto) 0.17 K/uL Basophils # (Auto) 0.03 K/uL RDW Standard Deviation 42.9 fL RDW Coefficient of Variation 12.9 % Immature Granulocyte % (Auto) 0.3 % Immature Granulocyte # (Auto) 0.03 K/uL Sodium Level 141 mmol/L Potassium Level 3.6 mmol/L Chloride Level 108 mmol/L Carbon Dioxide Level 25 mmol/L Anion Gap 8.0 mmol/L Blood Urea Nitrogen 26 mg/dl Creatinine 1.40 mg/dl Est Creatinine Clear Calc Drug Dose 40.9 ml/min Estimated GFR () 52.0 Estimated GFR (Non- 44.9 BUN/Creatinine Ratio 18.5 Random Glucose 164 mg/dl Calcium Level 8.2 mg/dl Test 10/01/16 06:11 10/01/16 12:10 Bedside Glucose 154 mg/dl 244 mg/dl Assessment & Plan 88 year old male with history DM, HTN, afib -acute stroke deep right hemiparesis ACUTE CVA, LEFT MCA INFARCT WITH POSSIBLE PETECHIAL HEMORRHAGE POSSIBLE LEFT MCA OCCLUSION - found unresponsive at home - CT head : 1. Hypodense area within the left frontotemporal region and left basal ganglia consistent with an acute to subacute left MCA territory infarct. 2. Small old infarct within the left occipital lobe. 3. No acute hemorrhage identified. 4. Right scalp/facial subcutaneous edema/swelling. 09/30/16: repeat CT head shows: 1. Subacute left MCA infarct. Stable mild mass effect. 2. Possible left MCA artery thrombus. 3. Possible foci of petechial hemorrhage within the infarct. No large hemorrhage is visualized. - Neurology on board hold Aspirin, no anticoagulation repeat CT head in 1 week, then decide on Aspirin resumption if CT head negative SEVERE DYSPHAGIA Impression : The patient has poor oral motor control combined with no gag reflex and very weak airway protection. Not yet ready for oral intake. s/p VideoSwallow Aspiration was seen with the nectar thick liquid and thin barium textures. -- diet advanced continue to monitor APHASIA, RIGHT SIDED HEMIPARESIS - continue PT and Speech Therapy UTI Urine culture E Coli on Rocephin IV HISTORY OF DM 2 A1c 10.8 - another request to obtain records to [facility] ordered - apparently was on oral medications - ISS for now HISTORY OF HYPERTENSION - hold BP meds for now to maintain BP on the high side post stroke - Clonidine PRN for syst BP > 180 HISTORY OF A FIB? - awaiting records from [place] - low dose Metoprolol PO BID ordered anticoagulation contraindicated at this time due to large MCA stroke, petechial hemorrhage DVT PROPHYLAXIS high risk due to dense hemiparesis scd and teds avoid pharmacological anticoagulation for CT finding of intracranial hge DISPOSITION pending will need Rehab/ SNF placement will update family Current Inpatient Medications: Current Inpatient Medications Medications (Trade) Dose Ordered Sig/Tova Route Start Time Stop Time Status Last Admin Dose Admin Miscellaneous Information (Pharmacist Discharge Med Rec Consult) 1 ea UD PRN N/A 09/28/16 20:30 10/28/16 20:29 Ceftriaxone Sodium 1000 mg/ Dextrose 60 ml @ 100 mls/hr DAILY@1700 IV 09/29/16 17:00 10/03/16 16:59 09/30/16 17:40 100 MLS/HR Glucose (Glucose 40% Gel) 15-30 GRAMS 15 GRAMS... UD PRN PO 09/28/16 20:45 10/28/16 20:44 Glucose (Glucose Chew Tab) 4-8 Tablets 4 Tabl... UD PRN PO 09/28/16 20:45 10/28/16 20:44 Dextrose (Dextrose 50% 50ML Syringe) 25-50ML OF 50% DW IV FOR... UD PRN IV 09/28/16 20:45 10/28/16 20:44 Glucagon (Glucagon Inj) 1 mg UD PRN SQ 09/28/16 20:45 10/28/16 20:44 Miscellaneous Information (Consult Glycemic Management Pharmacy) 1 ea UD N/A 09/28/16 20:41 10/28/16 20:40 Sodium Chloride 1,000 ml @ 60 mls/hr [id number] IV 09/30/16 05:00 10/30/16 04:59 10/01/16 12:17 60 MLS/HR Insulin Aspart (novoLOG ASPART) SLIDING SCALE If C... ACHS SC 10/01/16 11:00 10/31/16 10:59 10/01/16 12:39 8 UNITS Metoprolol Tartrate (Lopressor Tab) 12.5 mg BID PO 10/01/16 21:00 10/31/16 20:59
--- NOTE | 2016-10-01 14:32 | Neurology Progress Notes ---
Neurology Progress Note Date of Service Oct 01, 2016. Subjective Pee is a 88 year old male who has a PMH afib, HTN, DM. He goes to the [facility] in [place] for his care. but according to chart the son reports he does not follow regularly. He was found down on the floor of his home waving his left arm in the air. He had noticed some urine present on the floor. CT head reveals a left frontotemporal and basal ganglia stroke. he was last seen yesterday around 8:30pm until he was found in this condition at 1:30pm the next day. He lives alone and had recently lost his in May. He is usually very active still driving and mowing his lawn. His son states he is DM but never took anything for it he also has a vision issues which he knows is rare. It is unclear if he was taking any of the medications he was prescribed. Records were requested from the [facility] in [place] a copy of his medications were also requested from [facility]. Pee is sleeping in bed today but easily arousal. He is minimally following commands. There is no family in room. Objective Date Time Temp Pulse Resp B/P (MAP) Pulse Ox O2 Delivery O2 Flow Rate FiO2 10/01/16 12:10 Room Air 10/01/16 11:31 36.6 117 17 168/93 (118) 99 Room Air 10/01/16 08:00 Room Air 10/01/16 07:21 36.9 107 18 169/99 (122) 98 Room Air 10/01/16 04:00 35.9 108 12 170/96 (120) 97 Room Air 10/01/16 04:00 Room Air 10/01/16 01:20 37.4 111 21 145/82 (103) 97 Room Air 10/01/16 00:01 Room Air 09/30/16 19:43 Room Air 09/30/16 19:37 37.1 142 16 154/91 (112) 96 Room Air 09/30/16 16:00 Room Air 09/30/16 15:11 37.6 122 16 164/92 (116) 96 Room Air Last 24 Hours Test 09/30/16 16:03 09/30/16 20:30 09/30/16 23:19 10/01/16 05:23 Bedside Glucose 209 mg/dl 282 mg/dl 215 mg/dl White Blood Count 10.98 K/uL Red Blood Count 5.19 M/uL Hemoglobin 16.0 g/dL Hematocrit 47.3 % Mean Corpuscular Volume 91.1 fL Mean Corpuscular Hemoglobin 30.8 pg Mean Corpuscular Hemoglobin Concent 33.8 g/dl Platelet Count 183 K/uL Mean Platelet Volume 10.6 fL Neutrophils (%) (Auto) 65.3 % Lymphocytes (%) (Auto) 23.5 % Monocytes (%) (Auto) 9.1 % Eosinophils (%) (Auto) 1.5 % Basophils (%) (Auto) 0.3 % Neutrophils # (Auto) 7.17 K/uL Lymphocytes # (Auto) 2.58 K/uL Monocytes # (Auto) 1.00 K/uL Eosinophils # (Auto) 0.17 K/uL Basophils # (Auto) 0.03 K/uL RDW Standard Deviation 42.9 fL RDW Coefficient of Variation 12.9 % Immature Granulocyte % (Auto) 0.3 % Immature Granulocyte # (Auto) 0.03 K/uL Sodium Level 141 mmol/L Potassium Level 3.6 mmol/L Chloride Level 108 mmol/L Carbon Dioxide Level 25 mmol/L Anion Gap 8.0 mmol/L Blood Urea Nitrogen 26 mg/dl Creatinine 1.40 mg/dl Est Creatinine Clear Calc Drug Dose 40.9 ml/min Estimated GFR () 52.0 Estimated GFR (Non- 44.9 BUN/Creatinine Ratio 18.5 Random Glucose 164 mg/dl Calcium Level 8.2 mg/dl Test 10/01/16 06:11 10/01/16 12:10 Bedside Glucose 154 mg/dl 244 mg/dl Imaging: carotid doppler -no significant stenosis TTE- Ejection Fraction = 55-60%. Aortic valve sclerosis mild, without significant aortic valvular stenosis. Doppler findings do not suggest pulmonary hypertension. There is no evidence of atrial septal defect, but resolution does not allow assessment for a patent foramen ovale. Exam: Physical Exam: Constitutional: appearance nourished, healthy Ears, Nose, Mouth and Throat: mucous membranes moist, no injection and skin normal, eyes normal Cardiovascular: irregular irregular Respiratory: clear to auscultation (CTA) and no rales, rhonchi or wheeze Musculoskeletal: none pitting peripheral edema, pressure boot in place Skin: no stigmata of neurocutaneous disease noted and normal and intact Eyes: pupils equal round reactive, gaze preference NEUROLOGIC EXAMINATION: Mental status: Alert with voice command Cranial Nerves facial asymmetry, right facial droop Reflexes: Deep tendon reflexes were symmetrical and graded 2/5. Plantar responses were flexor. Gait/Stance: Posture sitting up in bed Motor: moves left side spontaneously Strength: slight withdrawal with deep stimulation right arm unable to maintain against gravity, right LE slight extension with deep stimulation, raises left arm to command and will squeeze with left hand with command, straightens leg and repositions left spontaneously. Current Inpatient Medications Medications (Trade) Dose Ordered Sig/Tova Route Start Time Stop Time Status Last Admin Dose Admin Miscellaneous Information (Pharmacist Discharge Med Rec Consult) 1 ea UD PRN N/A 09/28/16 20:30 10/28/16 20:29 Ceftriaxone Sodium 1000 mg/ Dextrose 60 ml @ 100 mls/hr DAILY@1700 IV 09/29/16 17:00 10/03/16 16:59 09/30/16 17:40 100 MLS/HR Glucose (Glucose 40% Gel) 15-30 GRAMS 15 GRAMS... UD PRN PO 09/28/16 20:45 10/28/16 20:44 Glucose (Glucose Chew Tab) 4-8 Tablets 4 Tabl... UD PRN PO 09/28/16 20:45 10/28/16 20:44 Dextrose (Dextrose 50% 50ML Syringe) 25-50ML OF 50% DW IV FOR... UD PRN IV 09/28/16 20:45 10/28/16 20:44 Glucagon (Glucagon Inj) 1 mg UD PRN SQ 09/28/16 20:45 10/28/16 20:44 Miscellaneous Information (Consult Glycemic Management Pharmacy) 1 ea UD N/A 09/28/16 20:41 10/28/16 20:40 Sodium Chloride 1,000 ml @ 60 mls/hr [id number] IV 09/30/16 05:00 10/30/16 04:59 10/01/16 12:17 60 MLS/HR Insulin Aspart (novoLOG ASPART) SLIDING SCALE If C... ACHS SC 10/01/16 11:00 10/31/16 10:59 10/01/16 12:39 8 UNITS Metoprolol Tartrate (Lopressor Tab) 12.5 mg BID PO 10/01/16 21:00 10/31/16 20:59 Impression 88 year old male with history DM, HTN, afib -acute stroke deep right hemiparesis Plan 1. fall precautions 2. would hold aspirin for now 3. repeat CT head in [address] if no hemorrhagic conversion consider aspirin 4. PT/OT/speech for discharge needs swallowing study done. pureed and honey thickened liquids-diabetic 5. optimize DM, HTN, DL 6. deep hemiparesis recovery is likely poor 7. MRI would be helpful for extent of brain injury but will not change course of treatment 8. 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 Managnement as above.
[2016-10-01] MEDS ORDERED: INSULIN GLARGINE SOLOSTAR 100 UNITS/ML 3 ML PEN SC SCH (16:45)
[2016-10-01] MEDS: CEFTRIAXONE SOD INJ 1,000 MG in DEXTROSE 5% 50ML 50 ML IV SCH (17:37)
--- NOTE | 2016-10-01 18:03 | Cardiology Consultation ---
Cardiology Consultation Date of Consultation: Oct 01, 2016 History of Present Illness Pee Ragland is an 89-year-old male seen in cardiology consultation per the request of Dr. Collado for the evaluation of persistent atrial fibrillation and recent stroke. The patient is not previously followed with [facility] cardiology. His history is obtained from review of his records as he is unable to provide any history due to his recent stroke. He previously followed with the [facility] clinic in [place], but apparently it sounds as though he was not taking any chronic medications. Perhaps he has a history of chronic atrial fibrillation but I cannot confirm that. The patient was admitted on 09/28/2016 after having been found on the floor of his home. CT of the brain revealed a left frontotemporal and basal ganglia stroke. Telemetry at present he is in atrial fibrillation with mildly elevated ventricular rate in the 110 beat per minute range. Metoprolol tartrate was recently prescribed started today. During my assessment the patient has family was visiting him. He was able to move his feet on command his left leg is stronger than his right leg. His symptom move his left hand, but could not follow commands for me such as showing me his index finger. He was unable to move his right upper extremity and his right facial paralysis. History Past Medical History: 1. Atrial fibrillation is present now, perhaps chronic atrial fibrillation 2. Type 2 diabetes mellitus 3. Hypertension Past Surgical History: Unknown Social History: Family history of cerebrovascular disease Review Of Systems Comprehensive review of systems is unobtainable due to the patient's mental status ,cognitive impairment Allergies Coded Allergies: No Known Allergies (Unverified , 09/28/16) Medications Reported Home Medications (was not taking) Medications Dose Route/Sig Max Daily Dose Days Date Category Dose Instructions Micro-K Ext Rel (Potassium Chloride) Unknown Strength Capcr 09/28/16 Reported PLEASE SEE COMMENT Advil (Ibuprofen) 200 Mg Tab 200-600 Mg PO Q4H PRN 09/28/16 Reported Tylenol (Acetaminophen) 325 Mg Tab 650 Mg PO Q6 PRN 09/28/16 Reported Lopressor (Metoprolol Tartrate) Unknown Strength Tab 09/28/16 Reported UNKNOWN IF TOPROL OR LOPRESSOR. SEE COMMENT. Prinivil (Lisinopril) Unknown Strength Tab 09/28/16 Reported PLEASE SEE COMMENT Norvasc (Amlodipine Besylate) Unknown Strength Tab 09/28/16 Reported PLEASE SEE COMMENT Actos (Pioglitazone) Unknown Strength Tab 09/28/16 Reported PLEASE SEE COMMENT Zocor (Simvastatin) Unknown Strength Tab 09/28/16 Reported PLEASE SEE COMMENT Glipizide Er (Glipizide) Unknown Strength Tab 09/28/16 Reported PLEASE SEE COMMENT Hytrin (Terazosin HCl) Unknown Strength Cap 09/28/16 Reported PLEASE SEE COMMENT Lasix (Furosemide) Unknown Strength Tab 09/28/16 Reported PLEASE SEE COMMENT Current Inpatient Medications Medications (Trade) Dose Ordered Sig/Tova Route Start Time Stop Time Status Last Admin Dose Admin Miscellaneous Information (Pharmacist Discharge Med Rec Consult) 1 ea UD PRN N/A 09/28/16 20:30 10/28/16 20:29 Ceftriaxone Sodium 1000 mg/ Dextrose 60 ml @ 100 mls/hr DAILY@1700 IV 09/29/16 17:00 10/03/16 16:59 10/01/16 17:37 100 MLS/HR Glucose (Glucose 40% Gel) 15-30 GRAMS 15 GRAMS... UD PRN PO 09/28/16 20:45 10/28/16 20:44 Glucose (Glucose Chew Tab) 4-8 Tablets 4 Tabl... UD PRN PO 09/28/16 20:45 10/28/16 20:44 Dextrose (Dextrose 50% 50ML Syringe) 25-50ML OF 50% DW IV FOR... UD PRN IV 09/28/16 20:45 10/28/16 20:44 Glucagon (Glucagon Inj) 1 mg UD PRN SQ 09/28/16 20:45 10/28/16 20:44 Miscellaneous Information (Consult Glycemic Management Pharmacy) 1 ea UD N/A 09/28/16 20:41 10/28/16 20:40 Sodium Chloride 1,000 ml @ 60 mls/hr [id number] IV 09/30/16 05:00 10/30/16 04:59 10/01/16 12:17 60 MLS/HR Insulin Aspart (novoLOG ASPART) SLIDING SCALE If C... ACHS SC 10/01/16 11:00 10/31/16 10:59 10/01/16 17:41 8 UNITS Metoprolol Tartrate (Lopressor Tab) 12.5 mg BID PO 10/01/16 21:00 10/31/16 20:59 Clonidine HCl (Catapres Tab) 0.1 mg Q6H PRN PO 10/01/16 14:15 10/31/16 14:14 Insulin Glargine (Lantus Solostar Pen) 10 unit QDD SC 10/01/16 16:45 10/31/16 16:44 10/01/16 17:42 10 UNIT Physical Exam Vital Signs (Last 8hrs): Last 8 Hrs Date Time Temp Pulse Resp B/P (MAP) Pulse Ox O2 Delivery O2 Flow Rate FiO2 10/01/16 16:00 Room Air 10/01/16 15:27 36.6 90 22 164/91 (115) 98 Room Air 10/01/16 12:10 Room Air 10/01/16 11:31 36.6 117 17 168/93 (118) 99 Room Air General appearance: Acutely ill. No respiratory distress Neck: No bruits Cardiovascular regular rate, tachycardic, no murmurs Abdomen: Soft nontender Neurologic: Right-sided facial droop noted right upper extremity hemiparesis Extremities: No edema Data Last Resulted 10/01/16 05:23 Red Blood Count 5.19, Mean Corpuscular Volume 91.1, Mean Corpuscular Hemoglobin 30.8, Mean Corpuscular Hemoglobin Concent 33.8, Mean Platelet Volume 10.6, Neutrophils (%) (Auto) 65.3, Lymphocytes (%) (Auto) 23.5, Monocytes (%) (Auto) 9.1, Eosinophils (%) (Auto) 1.5, Basophils (%) (Auto) 0.3, Neutrophils # (Auto) 7.17, Lymphocytes # (Auto) 2.58, Monocytes # (Auto) 1.00, Eosinophils # (Auto) 0.17, Basophils # (Auto) 0.03 Last Resulted 10/01/16 05:23 EKG performed 09/28/2016 at 1544 reviewed independently: Atrial fibrillation with rapid ventricular response at 132 bpm. An age undetermined septal infarction cannot be excluded based on poor R-wave progression in leads V1 to V3. Previous tracings revealed for comparison. Transthoracic echocardiogram performed 09/29/16 reviewed independently by the undersigned: Left ventricular wall motion is normal. Telemetry ventricular ejection fraction is normal at 5560%. Aortic valve sclerosis without significant aortic valve stenosis was noted. There is no evidence of an atrial septal defect with resolution does not allow for assessment for a patent foramen ovale. Carotid duplex this admission revealed no evidence of carotid stenosis Most recent CT performed 09/30/2016 revealed evidence for a large left middle cerebral artery territory infarct with involvement of portions the left temporal , parietal, and frontal lobes. There is also evidence for involvement of the left basal ganglia. There are foci of increased attenuation consistent with minimal petechial hemorrhage. No large hematoma visualized. There is mass effect with effacement of the left lateral ventricle. Assessment & Plan Impression: 89-year-old male 1. 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 Atrial fibrillation, perhaps chronic mildly elevated ventricular rate Discussion/recommendations: It sounds as the patient may have had a history of atrial fibrillation but this is unclear. A list of medications and been obtained but standard medications expected for rate control are not on the list and certainly no anticoagulants were listed. The neurology notes were reviewed. At present the patient is not a candidate to go on anticoagulation, and aspirin is on hold due to the risk of hemorrhagic conversion. Neurology note from today recommended repeat CT of the brain one week after the most recent CT if no hemorrhagic conversion aspirin could be considered. In terms of atrial fibrillation, recommend increasing the metoprolol tartrate 25 mg twice a day I do not think this would drop his blood pressure to a level that would adversely effect his cerebral perfusion as we are trying to run his blood pressure a little bit high. Patient is on mechanical DVT prophylaxis: He is certainly at high risk for developing DVT, I defer decision regarding benefits and risks of subcutaneous heparin or subcutaneous Lovenox to neurology/Hospital service.
[2016-10-01] MEDS: METOPROLOL TARTRATE 25 MG TAB PO SCH (20:59)
[2016-10-01] MEDS ORDERED: METOPROLOL TARTRATE 25 MG TAB PO SCH (21:00)
[2016-10-02 03:53] VITALS: BP 161/94; PULSE 103; TEMP 36.5; O2SAT 97
[2016-10-02] MEDS: SODIUM CHLORIDE 0.45% 1000ML 1,000 ML IV SCH (05:26)
[2016-10-02 07:22] VITALS: BP 158/63; PULSE 100; TEMP 36.7; O2SAT 98
[2016-10-02] MEDS: METOPROLOL TARTRATE 25 MG TAB PO SCH ×2 (09:05→19:54)
[2016-10-02 09:40] LABS: CALCIUM 8.1 mg/dl (8.5-10.1)
[2016-10-02 09:41] LABS: BUN/CREATININE RATIO 18.8 (10-20); CREATININE 1.3 mg/dl (0.60-1.40); MAGNESIUM 2.2 mg/dl (1.8-2.4); POTASSIUM 3.5 mmol/L (3.5-5.1)
[2016-10-02] MEDS: INSULIN ASPART 100 UNITS/ML 3 ML PEN SC SCH ×4 (09:46→20:31)
--- NOTE | 2016-10-02 10:47 | Pharmacy Progress Note ---
Glycemic: Assessment & Plan Date of Service Oct 02, 2016. Assessment & Plan * The patient is currently receiving 28 units of insulin per day. BSGs ranging 145 - 244 mg/dl over the past 24hrs. * Insulin requirements have significantly increased secondary to re- introduction of a diet. * NPO --> Diet * 2 units --> 11 units --> 28 units * BSG control has improved since the addition of basal insulin yesterday evening. * FBG this morning = 145 mg/dl, basal rate appears appropriate currently. * Yesterday's DM regimen appeared heavy in regards to prandial insulin vs basal insulin, however, Lantus was not started until later in the day so this is not an accurate representation of prandial vs basal needs. * No changes to Novolog CF/CR. CONTINUE CURRENT PLAN FOR INPATIENT GLYCEMIC CONTROL: * Basal insulin: Lantus 10 units SQ qPM * Correctional Insulin: Novolog Correction per scale ACHS Goal Range: Low 110 mg/dL - High 140 mg/dL Correction Factor: 25 mg/dL/unit * Prandial insulin: Per carb ratio of 1 unit per 9 grams CHO consumed RECOMMENDATIONS FOR DISCHARGE: * A1c = 10.8% on 09/28/16 * Assuming this result is not totally reliable as current BSGs do not match this A1c. A1c may be artificially inflated secondary to recent hyperglycemia? * Based on age and co-morbidities recommended A1c ~ 8-8.5% * Recommend repeating A1c and titrating outpatient regimen accordingly. BSGs continue to improve, no changes needed to inpatient regimen at this time. Pharmacy will continue to monitor patient daily and write orders per [facility] inpatient glycemic control protocol. Thanks. * Please note that the plan above was derived based on current level of insulin resistance and hospital stress. These recommendations are appropriate for inpatient admission only. Plan of care upon discharge will need to be reassessed to avoid potential outpatient hypo/hyperglycemia.
[2016-10-02 12:05] VITALS: BP 146/84; PULSE 96; TEMP 36.6; O2SAT 98
--- NOTE | 2016-10-02 14:29 | Cardiology Follow-Up ---
Subjective General Date of Service: Oct 02, 2016. Chief Complaint: follow-up atrial fibrillation Pt evaluation today including: conversation w/ patient, physical exam History of Present Illness The patient is a 89 year old male seen in follow-up. Patient follows commands wiggling toes and moving left hand. Telemetry reveals atrial fibrillation with mildly elevated ventricular rate. Allergies Coded Allergies: No Known Allergies (Unverified , 09/28/16) Social History Hx Alcohol Use - Type And Amou: No Hx Substance Use - Type And Am: No Problem List Medical Problems: (1) CVA (cerebral vascular accident) Status: Acute (2) Diabetes mellitus out of control Status: Acute (3) UTI (urinary tract infection) Status: Acute Physical Exam Vital Signs Last Vital Signs Documentation Date Time Temp Pulse Resp B/P (MAP) Pulse Ox O2 Delivery O2 Flow Rate FiO2 10/02/16 12:05 36.6 96 24 146/84 (104) 98 Room Air Physical Exam Constitutional: Level of Distress: NAD Head: normocephalic Neck: supple Lungs: Auscultation: no wheezing, no rales/crackles Cardiovascular: Heart Auscultation: no murmurs, tachycardia, irregular rate rhythm Extremities: pertinent finding (right upper extremity edema) Neurologic: Gait & Station: pertinent finding (right upper extremity hemiparesis, right facial droop) Assessment and Plan Assessment and Plan Impression: 89-year-old male 1. 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 Atrial fibrillation, perhaps chronic mildly elevated ventricular rate Plan: Continue metoprolol tartrate 25 mg twice a day. We'll continue this dose to permit mild hypertension and for cerebral perfusion. He is on sequential pneumatic compression devices. Defer decision regarding pharmacologic DVT prophylaxis to primary service/neurology. Not on aspirin or anticoagulation due to risk of hemorrhagic conversion. Agree with neurology recommendation to repeat CT had a ten-day interval and add aspirin if no additional hemorrhage. Laboratory Results Last 24 Hours Test 10/01/16 16:07 10/01/16 20:13 10/02/16 06:56 10/02/16 09:00 Bedside Glucose 218 mg/dl 164 mg/dl 145 mg/dl Sodium Level 140 mmol/L Potassium Level 3.5 mmol/L Chloride Level 106 mmol/L Carbon Dioxide Level 25 mmol/L Anion Gap 9.0 mmol/L Blood Urea Nitrogen 25 mg/dl Creatinine 1.30 mg/dl Est Creatinine Clear Calc Drug Dose 43.7 ml/min Estimated GFR () 56.9 Estimated GFR (Non- 49.1 BUN/Creatinine Ratio 18.8 Random Glucose 162 mg/dl Calcium Level 8.1 mg/dl Magnesium Level 2.2 mg/dl Test 10/02/16 11:25 Bedside Glucose 224 mg/dl
--- NOTE | 2016-10-02 14:31 | Progress Note ---
Medicine Progress Note Date & Time of Visit: Oct 02, 2016 at 14:14. Subjective patient seen alert, comfortable nods to questions, but mostly nods so maybe inaccurate follows some simple commands- open mouth, squeeze examiner's fingers nods when asked if he is comfortable not in distress, no signs of pain able to tolerate pureed diet still aphasic not able to write no other symptoms/signs Objective Last 8 Hrs Date Time Temp Pulse Resp B/P (MAP) Pulse Ox O2 Delivery O2 Flow Rate FiO2 10/02/16 12:05 36.6 96 24 146/84 (104) 98 Room Air 10/02/16 08:00 Room Air 10/02/16 07:22 36.7 100 20 158/63 (94) 98 Physical Exam: General- not in distress, no accessory muscle use Eyes-anicteric Neck- supple, no JVD Lungs- clear breath sounds bilaterally, no rales/wheezes Heart-tachycardic, irregularly irregular rhythm Abdomen- normal bowel sounds, soft, nontender Extremities- mild right hand edema, no warmth/tenderness; no calf tenderness/ edema Neuro- alert, follows some simple commands aphasic right side 0/5 motor strength left side 5/5 Skin- warm & dry Laboratory Results: Last 24 Hours Test 10/01/16 16:07 10/01/16 20:13 10/02/16 06:56 10/02/16 09:00 Bedside Glucose 218 mg/dl 164 mg/dl 145 mg/dl Sodium Level 140 mmol/L Potassium Level 3.5 mmol/L Chloride Level 106 mmol/L Carbon Dioxide Level 25 mmol/L Anion Gap 9.0 mmol/L Blood Urea Nitrogen 25 mg/dl Creatinine 1.30 mg/dl Est Creatinine Clear Calc Drug Dose 43.7 ml/min Estimated GFR () 56.9 Estimated GFR (Non- 49.1 BUN/Creatinine Ratio 18.8 Random Glucose 162 mg/dl Calcium Level 8.1 mg/dl Magnesium Level 2.2 mg/dl Test 10/02/16 11:25 Bedside Glucose 224 mg/dl Assessment & Plan 88 year old male with history DM, HTN, afib -acute stroke deep right hemiparesis ACUTE CVA, LEFT MCA INFARCT WITH POSSIBLE PETECHIAL HEMORRHAGE POSSIBLE LEFT MCA OCCLUSION IN THE SETTING OF NEW ATRIAL FIBRILLATION - found unresponsive at home - CT head : 1. Hypodense area within the left frontotemporal region and left basal ganglia consistent with an acute to subacute left MCA territory infarct. 2. Small old infarct within the left occipital lobe. 3. No acute hemorrhage identified. 4. Right scalp/facial subcutaneous edema/swelling. 09/30/16: repeat CT head shows: 1. Subacute left MCA infarct. Stable mild mass effect. 2. Possible left MCA artery thrombus. 3. Possible foci of petechial hemorrhage within the infarct. No large hemorrhage is visualized. 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 Not yet ready for oral intake. s/p Video Swallow Study Aspiration was seen with the nectar thick liquid and thin barium textures. -- diet advanced to pureed diet with honey thick liquids follow speech therapy eval continue to monitor APHASIA, RIGHT SIDED HEMIPARESIS - continue PT and Speech Therapy - will need Rehab NEW DIAGNOSIS OF ATRIAL FIBRILLATION - resumed usual Metoprolol PO BID - HR improving anticoagulation contraindicated at this time due to large MCA stroke, petechial hemorrhage - will need to reassess aspirin and anticoagulation options as outpatient - Cardiology consulted, appreciate the input UTI Urine culture E Coli on Rocephin IV Day 4 HISTORY OF DM 2 A1c 10.8 - on Glipizide and Pioglitazone as outpatient - on Lantus and ISS - appreciate Pharmacy input HISTORY OF HYPERTENSION - hold BP meds for now to maintain BP on the high side post stroke - Clonidine PRN for syst BP > 180 HLD - increase Simvastatin to 40mg daily BPH - on Terazosin . DVT PROPHYLAXIS high risk due to dense hemiparesis scd and teds avoid pharmacological anticoagulation for CT finding of intracranial hge DISPOSITION pending will need Rehab/ SNF placement will update family Current Inpatient Medications: Current Inpatient Medications Medications (Trade) Dose Ordered Sig/Tova Route Start Time Stop Time Status Last Admin Dose Admin Miscellaneous Information (Pharmacist Discharge Med Rec Consult) 1 ea UD PRN N/A 09/28/16 20:30 10/28/16 20:29 Ceftriaxone Sodium 1000 mg/ Dextrose 60 ml @ 100 mls/hr DAILY@1700 IV 09/29/16 17:00 10/03/16 16:59 6/7/17 17:37 100 MLS/HR Glucose (Glucose 40% Gel) 15-30 GRAMS 15 GRAMS... UD PRN PO 09/28/16 20:45 10/28/16 20:44 Glucose (Glucose Chew Tab) 4-8 Tablets 4 Tabl... UD PRN PO 09/28/16 20:45 10/28/16 20:44 Dextrose (Dextrose 50% 50ML Syringe) 25-50ML OF 50% DW IV FOR... UD PRN IV 09/28/16 20:45 10/28/16 20:44 Glucagon (Glucagon Inj) 1 mg UD PRN SQ 09/28/16 20:45 10/28/16 20:44 Miscellaneous Information (Consult Glycemic Management Pharmacy) 1 ea UD N/A 09/28/16 20:41 10/28/16 20:40 Sodium Chloride 1,000 ml @ 60 mls/hr [id number] IV 09/30/16 05:00 10/30/16 04:59 10/02/16 05:26 60 MLS/HR Insulin Aspart (novoLOG ASPART) SLIDING SCALE If C... ACHS SC 10/01/16 11:00 10/31/16 10:59 10/02/16 12:40 9 UNITS Clonidine HCl (Catapres Tab) 0.1 mg Q6H PRN PO 10/01/16 14:15 10/31/16 14:14 Metoprolol Tartrate (Lopressor Tab) 25 mg BID PO 10/01/16 21:00 10/31/16 20:59 10/02/16 09:05 25 MG Insulin Glargine (Lantus Solostar Pen) 15 unit QDD SC 10/02/16 16:45 11/01/16 16:44
[2016-10-02 15:23] VITALS: BP 166/97; PULSE 113; TEMP 37; O2SAT 97
[2016-10-02] MEDS: NSS + 20MEQ KCL 1000ML 1,000 ML IV SCH (15:26)
[2016-10-02] MEDS: CEFTRIAXONE SOD INJ 1,000 MG in DEXTROSE 5% 50ML 50 ML IV SCH (17:31)
[2016-10-02] MEDS: INSULIN GLARGINE SOLOSTAR 100 UNITS/ML 3 ML PEN SC SCH (17:34)
[2016-10-02 19:22] VITALS: BP 153/96; PULSE 125; TEMP 36.4; O2SAT 98
[2016-10-02] MEDS ORDERED: MoRPHine SULFATE 2 MG/ML CARP IV STA (19:35)
[2016-10-02] MEDS: SIMVASTATIN 40 MG TAB PO SCH (19:54)
[2016-10-02 22:59] VITALS: BP 163/87; PULSE 106; TEMP 37; O2SAT 98
[2016-10-03] VITALS (7 sets, daily range): BP systolic 125–165; BP diastolic 79–94; PULSE 80–105; TEMP 36.6–37; O2SAT 94–98
[2016-10-03 06:07] LABS: BUN/CREATININE RATIO 20.8 (10-20); CREATININE 1.3 mg/dl (0.60-1.40); MAGNESIUM 2.2 mg/dl (1.8-2.4); POTASSIUM 4.2 mmol/L (3.5-5.1)
[2016-10-03] MEDS: NSS + 20MEQ KCL 1000ML 1,000 ML IV SCH (07:42)
[2016-10-03] MEDS: METOPROLOL TARTRATE 25 MG TAB PO SCH (07:42)
[2016-10-03] MEDS ORDERED: METOPROLOL TARTRATE 1 MG/ML VIAL ONE (08:23)
[2016-10-03] MEDS: INSULIN ASPART 100 UNITS/ML 3 ML PEN SC SCH ×4 (08:31→21:00)
[2016-10-03] MEDS ORDERED: METOPROLOL TARTRATE 1 MG/ML VIAL IV ONE (08:35)
--- NOTE | 2016-10-03 11:38 | Neurology Progress Notes ---
Neurology Progress Note Date of Service Oct 03, 2016. Subjective LATE ENTRY NOTE PATIENT SEE AND EXAMINED 1700 10/02/16 Pee is a 88 year old male who has a PMH afib, HTN, DM. He goes to the [facility] in [place] for his care. but according to chart the son reports he does not follow regularly. He was found down on the floor of his home waving his left arm in the air. He had noticed some urine present on the floor. CT head reveals a left frontotemporal and basal ganglia stroke. he was last seen yesterday around 8:30pm until he was found in this condition at 1:30pm the next day. He lives alone and had recently lost his in May. He is usually very active still driving and mowing his lawn. His son states he is DM but never took anything for it he also has a vision issues which he knows is rare. It is unclear if he was taking any of the medications he was prescribed. Records were requested from the [facility] in [place] a copy of his medications were also requested from [facility]. Pee is sitting up in bed He follows with eye and appears comfortable. Nursing advises he is tolerating pureed and honey thickened diet. Objective Date Time Temp Pulse Resp B/P (MAP) Pulse Ox O2 Delivery O2 Flow Rate FiO2 10/03/16 08:33 92 125/86 (99) 10/03/16 08:27 132 149/96 10/03/16 08:00 Room Air 10/03/16 07:36 36.6 103 26 156/94 (114) 98 Room Air 10/03/16 04:00 Room Air 10/03/16 03:10 36.8 105 16 165/89 (114) 96 Room Air 10/02/16 23:25 Room Air 10/02/16 22:59 37.0 106 18 163/87 (112) 98 Room Air 10/02/16 20:00 Room Air 10/02/16 19:22 36.4 125 22 153/96 (115) 98 Room Air 10/02/16 16:00 Room Air 10/02/16 15:23 37.0 113 20 166/97 (120) 97 Room Air 10/02/16 12:05 36.6 96 24 146/84 (104) 98 Room Air 10/02/16 12:00 Room Air Last 24 Hours Test 10/02/16 11:25 10/02/16 16:14 10/02/16 20:15 10/03/16 05:08 Bedside Glucose 224 mg/dl 254 mg/dl 187 mg/dl Sodium Level 142 mmol/L Potassium Level 4.2 mmol/L Chloride Level 109 mmol/L Carbon Dioxide Level 26 mmol/L Anion Gap 7.0 mmol/L Blood Urea Nitrogen 27 mg/dl Creatinine 1.30 mg/dl Est Creatinine Clear Calc Drug Dose 44.7 ml/min Estimated GFR () 56.9 Estimated GFR (Non- 49.1 BUN/Creatinine Ratio 20.8 Random Glucose 115 mg/dl Calcium Level 8.0 mg/dl Magnesium Level 2.2 mg/dl Test 10/03/16 06:36 10/03/16 10:56 Bedside Glucose 110 mg/dl 201 mg/dl Imaging: no new imaging Exam: Gen: alert with voice command normal respiratory effort shakes head with questions but follows limited commands raise left arm against gravity with command and lifts left against gravity minimal movement with deep stimulations Current Inpatient Medications Medications (Trade) Dose Ordered Sig/Tova Route Start Time Stop Time Status Last Admin Dose Admin Miscellaneous Information (Pharmacist Discharge Med Rec Consult) 1 ea UD PRN N/A 09/28/16 20:30 10/28/16 20:29 Ceftriaxone Sodium 1000 mg/ Dextrose 60 ml @ 100 mls/hr DAILY@1700 IV 09/29/16 17:00 10/03/16 16:59 10/02/16 17:31 100 MLS/HR Glucose (Glucose 40% Gel) 15-30 GRAMS 15 GRAMS... UD PRN PO 09/28/16 20:45 10/28/16 20:44 Glucose (Glucose Chew Tab) 4-8 Tablets 4 Tabl... UD PRN PO 09/28/16 20:45 10/28/16 20:44 Dextrose (Dextrose 50% 50ML Syringe) 25-50ML OF 50% DW IV FOR... UD PRN IV 09/28/16 20:45 10/28/16 20:44 Glucagon (Glucagon Inj) 1 mg UD PRN SQ 09/28/16 20:45 10/28/16 20:44 Miscellaneous Information (Consult Glycemic Management Pharmacy) 1 ea UD N/A 09/28/16 20:41 10/28/16 20:40 Insulin Aspart (novoLOG ASPART) SLIDING SCALE If C... ACHS SC 10/01/16 11:00 10/31/16 10:59 10/03/16 08:31 6 UNITS Clonidine HCl (Catapres Tab) 0.1 mg Q6H PRN PO 10/01/16 14:15 10/31/16 14:14 Metoprolol Tartrate (Lopressor Tab) 25 mg BID PO 10/01/16 21:00 10/31/16 20:59 10/03/16 07:42 25 MG Insulin Glargine (Lantus Solostar Pen) 15 unit QDD SC 10/02/16 16:45 11/01/16 16:44 10/02/16 17:34 15 UNIT Simvastatin (Zocor Tab) 40 mg PM PO 10/02/16 21:00 11/01/16 20:59 10/02/16 19:54 40 MG Potassium Chloride/Sodium Chloride 1,000 ml @ 60 mls/hr [id number] IV 10/02/16 14:45 11/01/16 14:44 10/03/16 07:42 60 MLS/HR Impression 88 year old male with history DM, HTN, afib -acute stroke deep right hemiparesis Plan 1. fall precautions 2. would hold aspirin for now 3. repeat CT head in [address] if no hemorrhagic conversion consider aspirin 4. PT/OT/speech for discharge needs swallowing study done. pureed and honey thickened liquids-diabetic 5. optimize DM, HTN, DL 6. deep hemiparesis recovery is likely poor 7. MRI would be helpful for extent of brain injury but will not change course of treatment 8. POA and if patient has living will and discharge requests I have seen and discussed above patient with Dr Nevin Mon, neurology Pt seen and examined. ASHLEY Mon MD
--- NOTE | 2016-10-03 11:40 | Cardiology Follow-Up ---
Subjective General Date of Service: Oct 03, 2016. Chief Complaint: follow-up atrial fibrillation Pt evaluation today including: conversation w/ patient, physical exam History of Present Illness The patient is a 89 year old male seen in follow-up. He is more alert today, and was looking at the newspaper holding it up with his left arm. Telemetry reveals continued atrial fibrillation, ventricular rates remain mildly elevated in the 110-120 beat per minute range. He received a dose of IV metoprolol earlier today. Allergies Coded Allergies: No Known Allergies (Unverified , 09/28/16) Social History Hx Alcohol Use - Type And Amou: No Hx Substance Use - Type And Am: No Problem List Medical Problems: (1) CVA (cerebral vascular accident) Status: Acute (2) Diabetes mellitus out of control Status: Acute (3) UTI (urinary tract infection) Status: Acute Physical Exam Vital Signs Last Vital Signs Documentation Date Time Temp Pulse Resp B/P (MAP) Pulse Ox O2 Delivery O2 Flow Rate FiO2 10/03/16 11:27 36.6 88 20 158/86 (110) 94 Room Air Physical Exam Constitutional: Level of Distress: NAD Head: normocephalic Neck: supple Lungs: Auscultation: no wheezing, no rales/crackles Cardiovascular: Heart Auscultation: no murmurs, tachycardia, irregular rate rhythm Extremities: pertinent finding (right upper extremity edema) Neurologic: Gait & Station: pertinent finding (right upper extremity hemiparesis, right facial droop) Assessment and Plan Assessment and Plan Chronicity uncertain Impression: 89-year-old male 1. 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 Atrial fibrillation, perhaps chronic mildly elevated ventricular rate Plan: Increase metoprolol tartrate 50 mg twice a day. He is on sequential pneumatic compression devices. Defer decision regarding pharmacologic DVT prophylaxis to primary service/neurology. Not on aspirin or anticoagulation due to risk of hemorrhagic conversion. Agree with neurology recommendation to repeat CT had a ten-day interval and add aspirin if no additional hemorrhage. Will need neurology input as an outpatient in terms of placing patient on full anticoagulation perhaps with Coumadin in the future the risk of hemorrhagic conversion of stroke improves. Will sign off for now. Dr. Agee is on for the weekend. Please call with questions or concerns. Laboratory Results Last 24 Hours Test 10/02/16 16:14 10/02/16 20:15 10/03/16 05:08 10/03/16 06:36 Bedside Glucose 254 mg/dl 187 mg/dl 110 mg/dl Sodium Level 142 mmol/L Potassium Level 4.2 mmol/L Chloride Level 109 mmol/L Carbon Dioxide Level 26 mmol/L Anion Gap 7.0 mmol/L Blood Urea Nitrogen 27 mg/dl Creatinine 1.30 mg/dl Est Creatinine Clear Calc Drug Dose 44.7 ml/min Estimated GFR () 56.9 Estimated GFR (Non- 49.1 BUN/Creatinine Ratio 20.8 Random Glucose 115 mg/dl Calcium Level 8.0 mg/dl Magnesium Level 2.2 mg/dl Test 10/03/16 10:56 Bedside Glucose 201 mg/dl
[2016-10-03] MEDS ORDERED: METOPROLOL TARTRATE 25 MG TAB PO ONE (11:45)
--- NOTE | 2016-10-03 12:49 | Neurology Progress Notes ---
Neurology Progress Note Date of Service Oct 03, 2016. Subjective Pee is a 88 year old male who has a PMH afib, HTN, DM. He goes to the [facility] in [place] for his care. but according to chart the son reports he does not follow regularly. He was found down on the floor of his home waving his left arm in the air. He had noticed some urine present on the floor. CT head reveals a left frontotemporal and basal ganglia stroke. he was last seen yesterday around 8:30pm until he was found in this condition at 1:30pm the next day. He lives alone and had recently lost his in May. He is usually very active still driving and mowing his lawn. His son states he is DM but never took anything for it he also has a vision issues which he knows is rare. It is unclear if he was taking any of the medications he was prescribed. Records were requested from the [facility] in [place] a copy of his medications were also requested from [facility]. Pee is sitting up in bed and had just finished eating his lunch. He shakes his head with simple questions. Nursing advises he has been accepted at . Objective Date Time Temp Pulse Resp B/P (MAP) Pulse Ox O2 Delivery O2 Flow Rate FiO2 10/03/16 12:00 Room Air 10/03/16 11:27 36.6 88 20 158/86 (110) 94 Room Air 10/03/16 08:33 92 125/86 (99) 10/03/16 08:27 132 149/96 10/03/16 08:00 Room Air 10/03/16 07:36 36.6 103 26 156/94 (114) 98 Room Air 10/03/16 04:00 Room Air 10/03/16 03:10 36.8 105 16 165/89 (114) 96 Room Air 10/02/16 23:25 Room Air 10/02/16 22:59 37.0 106 18 163/87 (112) 98 Room Air 10/02/16 20:00 Room Air 10/02/16 19:22 36.4 125 22 153/96 (115) 98 Room Air 10/02/16 16:00 Room Air 10/02/16 15:23 37.0 113 20 166/97 (120) 97 Room Air Last 24 Hours Test 10/02/16 16:14 10/02/16 20:15 10/03/16 05:08 10/03/16 06:36 Bedside Glucose 254 mg/dl 187 mg/dl 110 mg/dl Sodium Level 142 mmol/L Potassium Level 4.2 mmol/L Chloride Level 109 mmol/L Carbon Dioxide Level 26 mmol/L Anion Gap 7.0 mmol/L Blood Urea Nitrogen 27 mg/dl Creatinine 1.30 mg/dl Est Creatinine Clear Calc Drug Dose 44.7 ml/min Estimated GFR () 56.9 Estimated GFR (Non- 49.1 BUN/Creatinine Ratio 20.8 Random Glucose 115 mg/dl Calcium Level 8.0 mg/dl Magnesium Level 2.2 mg/dl Test 10/03/16 10:56 Bedside Glucose 201 mg/dl Imaging: no new imaging Exam: Physical Exam: Constitutional: appearance nourished, healthy Ears, Nose, Mouth and Throat: mucous membranes moist, no injection and skin normal, eyes normal Cardiovascular: irregular irregular Respiratory: clear to auscultation (CTA) and no rales, rhonchi or wheeze Musculoskeletal: non pitting peripheral edema Skin: no stigmata of neurocutaneous disease noted and normal and intact Eyes: spontaneously moves toward voice but does not follow with command NEUROLOGIC EXAMINATION: Mental status: Alert and interactive, facial asymmetry right droop Oriented to person Speech does not speech, expressive and receptive aphasia Reflexes: Deep tendon reflexes were symmetrical and graded 2/5 Gait/Stance: Posture sitting up in bed Strength: raised left arm against gravity and with commend. lift left leg with command against gravity. minimal movement of right UE with deep stimulation, right LE moves toes spontaneous Current Inpatient Medications Medications (Trade) Dose Ordered Sig/Tova Route Start Time Stop Time Status Last Admin Dose Admin Miscellaneous Information (Pharmacist Discharge Med Rec Consult) 1 ea UD PRN N/A 09/28/16 20:30 10/28/16 20:29 Ceftriaxone Sodium 1000 mg/ Dextrose 60 ml @ 100 mls/hr DAILY@1700 IV 09/29/16 17:00 10/03/16 16:59 10/02/16 17:31 100 MLS/HR Glucose (Glucose 40% Gel) 15-30 GRAMS 15 GRAMS... UD PRN PO 09/28/16 20:45 10/28/16 20:44 Glucose (Glucose Chew Tab) 4-8 Tablets 4 Tabl... UD PRN PO 09/28/16 20:45 10/28/16 20:44 Dextrose (Dextrose 50% 50ML Syringe) 25-50ML OF 50% DW IV FOR... UD PRN IV 09/28/16 20:45 10/28/16 20:44 Glucagon (Glucagon Inj) 1 mg UD PRN SQ 09/28/16 20:45 10/28/16 20:44 Miscellaneous Information (Consult Glycemic Management Pharmacy) 1 ea UD N/A 09/28/16 20:41 10/28/16 20:40 Insulin Aspart (novoLOG ASPART) SLIDING SCALE If C... ACHS SC 10/01/16 11:00 10/31/16 10:59 10/03/16 12:36 10 UNITS Clonidine HCl (Catapres Tab) 0.1 mg Q6H PRN PO 10/01/16 14:15 10/31/16 14:14 Insulin Glargine (Lantus Solostar Pen) 15 unit QDD SC 10/02/16 16:45 11/01/16 16:44 10/02/16 17:34 15 UNIT Simvastatin (Zocor Tab) 40 mg PM PO 10/02/16 21:00 11/01/16 20:59 10/02/16 19:54 40 MG Potassium Chloride/Sodium Chloride 1,000 ml @ 60 mls/hr [id number] IV 10/02/16 14:45 11/01/16 14:44 10/03/16 07:42 60 MLS/HR Metoprolol Tartrate (Lopressor Tab) 50 mg BID PO 10/03/16 21:00 10/31/16 20:59 Impression 88 year old male with history DM, HTN, afib -acute stroke deep right hemiparesis Plan 1. fall precautions 2. would hold aspirin for now 3. repeat CT head in [address] if no hemorrhagic conversion consider aspirin 4. PT/OT/speech for discharge needs swallowing study done. pureed and honey thickened liquids-diabetic 5. optimize DM, HTN, DL 6. deep hemiparesis recovery is poor but patient is improving 7. MRI would be helpful for extent of brain injury but will not change course of treatment 8. POA and if patient has living will and discharge requests 9. patient accepted at [facility] awaiting medical approval and insurance approval. 10. will see in our clinic 2-3 week after discharge from rehab. Nevin Ram [facility] 11. neurology has no further input at this time, will be available for questions if needed I have seen and discussed above patient with Dr Yonatan Delgadillo, neurology Patient seen today and aboe note reviewed along with prior imaging studies and notes Untreated a fib with large deep left hemispheric embolic cva and dense right erwin an global aphasia Little mor to offer and anticoagulant risk at this time is high For transfer the [facility] and should have a repeat ct done in about a week if no bleed then ok for asa at least even though its value in rx of a fib is minor. To be seen in [facility] neurology 2-3 weeks post discharge from [facility] We will sign off for now and see prn if any other issue emerge Yonatan Delgadillo MD
[2016-10-03] MEDS: INSULIN GLARGINE SOLOSTAR 100 UNITS/ML 3 ML PEN SC SCH (17:13)
--- NOTE | 2016-10-03 19:25 | Progress Note ---
Medicine Progress Note Date & Time of Visit: Oct 03, 2016 at 19:20. Subjective patient seen resting in bed, comfortable alert, follows some simple commands denies pain, or other symptoms HR increased this morning received 2.5mg IV lopressor Metoprolol increased to 50mg bid HR 80 now no other symptoms Objective Last 8 Hrs Date Time Temp Pulse Resp B/P (MAP) Pulse Ox O2 Delivery O2 Flow Rate FiO2 10/03/16 16:00 Room Air 10/03/16 15:33 36.8 80 22 165/79 (107) 95 Room Air 10/03/16 12:00 Room Air 10/03/16 11:27 36.6 88 20 158/86 (110) 94 Room Air Physical Exam: General- not in distress, no accessory muscle use Neck- no JVD Lungs- clear breath sounds bilaterally Heart-normal rate, irregularly irregular rhythm Abdomen- normal bowel sounds, soft, nontender Extremities- mild right hand edema, no warmth/tenderness; no calf tenderness/ edema Neuro- alert, follows some simple commands aphasic right side 0/5 motor strength left side 5/5 Skin- warm & dry Laboratory Results: Last 24 Hours Test 10/02/16 20:15 10/03/16 05:08 10/03/16 06:36 10/03/16 10:56 Bedside Glucose 187 mg/dl 110 mg/dl 201 mg/dl Sodium Level 142 mmol/L Potassium Level 4.2 mmol/L Chloride Level 109 mmol/L Carbon Dioxide Level 26 mmol/L Anion Gap 7.0 mmol/L Blood Urea Nitrogen 27 mg/dl Creatinine 1.30 mg/dl Est Creatinine Clear Calc Drug Dose 44.7 ml/min Estimated GFR () 56.9 Estimated GFR (Non- 49.1 BUN/Creatinine Ratio 20.8 Random Glucose 115 mg/dl Calcium Level 8.0 mg/dl Magnesium Level 2.2 mg/dl Test 10/03/16 16:05 Bedside Glucose 184 mg/dl Assessment & Plan 88 year old male with history DM, HTN, afib -acute stroke deep right hemiparesis ACUTE CVA, LEFT MCA INFARCT WITH POSSIBLE PETECHIAL HEMORRHAGE POSSIBLE LEFT MCA OCCLUSION IN THE SETTING OF NEW ATRIAL FIBRILLATION - found unresponsive at home - CT head : 1. Hypodense area within the left frontotemporal region and left basal ganglia consistent with an acute to subacute left MCA territory infarct. 2. Small old infarct within the left occipital lobe. 3. No acute hemorrhage identified. 4. Right scalp/facial subcutaneous edema/swelling. 09/30/16: repeat CT head shows: 1. Subacute left MCA infarct. Stable mild mass effect. 2. Possible left MCA artery thrombus. 3. Possible foci of petechial hemorrhage within the infarct. No large hemorrhage is visualized. 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 Not yet ready for oral intake. s/p Video Swallow Study Aspiration was seen with the nectar thick liquid and thin barium textures. -- diet advanced to pureed diet with honey thick liquids tolerating well follow speech therapy eval continue to monitor APHASIA, RIGHT SIDED HEMIPARESIS - continue PT and Speech Therapy - will need Rehab accepted at [facility] NEW DIAGNOSIS OF ATRIAL FIBRILLATION anticoagulation contraindicated at this time due to large MCA stroke, petechial hemorrhage - increase Metoprolol to 50mg BID for better heart rate control monitor - will need to reassess aspirin and anticoagulation options as outpatient - Cardiology consulted, appreciate the input UTI Urine culture E Coli on Rocephin IV Day 5 HISTORY OF DM 2 A1c 10.8 - on Glipizide and Pioglitazone as outpatient - on Lantus and ISS - appreciate Pharmacy input HISTORY OF HYPERTENSION - hold BP meds for now to maintain BP on the high side post stroke - Clonidine PRN for syst BP > 180 HLD - increase Simvastatin to 40mg daily BPH - on Terazosin . DVT PROPHYLAXIS high risk due to dense hemiparesis scd and teds avoid pharmacological anticoagulation for CT finding of intracranial hge DISPOSITION accepted to [facility] possible d/c tomorrow updated daughter in law Pat and son Tobi today they have been updated daily they are comfortable and agreeable with plan of care Current Inpatient Medications: Current Inpatient Medications Medications (Trade) Dose Ordered Sig/Tova Route Start Time Stop Time Status Last Admin Dose Admin Glucose (Glucose 40% Gel) 15-30 GRAMS 15 GRAMS... UD PRN PO 09/28/16 20:45 10/28/16 20:44 Glucose (Glucose Chew Tab) 4-8 Tablets 4 Tabl... UD PRN PO 09/28/16 20:45 10/28/16 20:44 Dextrose (Dextrose 50% 50ML Syringe) 25-50ML OF 50% DW IV FOR... UD PRN IV 09/28/16 20:45 10/28/16 20:44 Glucagon (Glucagon Inj) 1 mg UD PRN SQ 09/28/16 20:45 10/28/16 20:44 Miscellaneous Information (Consult Glycemic Management Pharmacy) 1 ea UD N/A 09/28/16 20:41 10/28/16 20:40 Insulin Aspart (novoLOG ASPART) SLIDING SCALE If C... ACHS SC 10/01/16 11:00 10/31/16 10:59 10/03/16 17:13 10 UNITS Clonidine HCl (Catapres Tab) 0.1 mg Q6H PRN PO 10/01/16 14:15 10/31/16 14:14 Insulin Glargine (Lantus Solostar Pen) 15 unit QDD SC 10/02/16 16:45 11/01/16 16:44 10/03/16 17:13 15 UNIT Simvastatin (Zocor Tab) 40 mg PM PO 10/02/16 21:00 11/01/16 20:59 10/02/16 19:54 40 MG Potassium Chloride/Sodium Chloride 1,000 ml @ 60 mls/hr [id number] IV 10/02/16 14:45 11/01/16 14:44 10/03/16 07:42 60 MLS/HR Metoprolol Tartrate (Lopressor Tab) 50 mg BID PO 10/03/16 21:00 10/31/16 20:59
[2016-10-03] MEDS: SIMVASTATIN 40 MG TAB PO SCH (21:07)
[2016-10-03] MEDS: METOPROLOL TARTRATE 50 MG TAB PO SCH (21:08)
[2016-10-04] MEDS: NSS + 20MEQ KCL 1000ML 1,000 ML IV SCH (00:39)
[2016-10-04 03:50] VITALS: BP 162/89; PULSE 113; TEMP 36.6; O2SAT 97
[2016-10-04 06:26] LABS: BUN/CREATININE RATIO 20.4 (10-20); CALCIUM 8.3 mg/dl (8.5-10.1); CREATININE 1.3 mg/dl (0.60-1.40); MAGNESIUM 2.3 mg/dl (1.8-2.4); POTASSIUM 3.8 mmol/L (3.5-5.1)
[2016-10-04] MEDS: INSULIN ASPART 100 UNITS/ML 3 ML PEN SC SCH ×2 (07:00→11:00)
[2016-10-04] MEDS: METOPROLOL TARTRATE 50 MG TAB PO SCH (07:36)
[2016-10-04 07:46] VITALS: BP 167/111; PULSE 118; TEMP 36.7; O2SAT 99
[2016-10-04 09:41] VITALS: BP 150/76; PULSE 85
[2016-10-04 11:44] VITALS: BP 147/76; PULSE 100; TEMP 36.4; O2SAT 97
--- NOTE | 2016-10-04 13:00 | Pharmacy Progress Note ---
Glycemic Control: Progress Nt Date of Service Oct 04, 2016. Scope Glycemic Pharmacist consulted by Dr Bowling on 09/28/16 for glycemic control and to write orders per [facility] inpatient glycemic control protocol. Objective Accuchecks BSG (last 24hrs): Test 10/03/16 16:05 10/03/16 20:16 10/04/16 05:19 10/04/16 07:03 Bedside Glucose 184 mg/dl (70-99) 92 mg/dl (70-99) 90 mg/dl (70-99) Random Glucose 75 mg/dl (70-99) Test 10/04/16 10:43 Bedside Glucose 127 mg/dl (70-99) Laboratory Data (last 24hrs) Test 10/04/16 05:19 Anion Gap 7.0 mmol/L BUN/Creatinine Ratio 20.4 Blood Urea Nitrogen 27 mg/dl Creatinine 1.30 mg/dl Potassium Level 3.8 mmol/L Sodium Level 143 mmol/L HbA1c: Test 09/28/16 16:19 Hemoglobin A1c 10.8 % (4.5-5.6) H Recent Pertinent Medications Outpatient Anti-diabetic Regimen: * Glipizide 10mg PO BID w/ meals * Actos 15mg daily * A1c = 10.8 % 09/28/16 The patient is currently receiving: * Basal insulin: Lantus 15 units every 24 hours - given with dinner * Correctional Insulin: Novolog Correction per scale ACHS Goal Range: Low 110 mg/dL - High 140 mg/dL Correction Factor: 20 mg/dL/unit * Prandial insulin: Per carb ratio of 1 unit per 7 grams CHO consumed * Oral Agents: None currently Risk Factors for Insulin Resistance: * Diet: ordered T2DM diet and tolerating well per carb counts Assessment & Plan ASSESSMENT: 10/04/16: * Type 2 diabetic whose oral medications are currently on hold as we are treating w/ basal/bolus strategy at this time * BSGs over the last 24 hrs have ranged 75-201, during this time he received 41 units of SQ insulin * Fasting BSG 75-90 this AM w/ 15 units of Lantus on board; I would like to reduce his basal insulin dose as BSG has been trending lower each day for last 2 days since the Lantus dose was increased from 10units Q HS to 15 units Q HS; will reduce dose by 20% * The last 3 BSGs have been 127 or less, suggesting the patient may be more insulin sensitive at this time, will also lessen the CF and CR doses as a precaution. Either he is more insulin sensitive or he has excess basal insulin on board today PLAN FOR INPATIENT GLYCEMIC CONTROL: * Decreasing Lantus to 12 units SQ Q HS * Changing correction factor to 25 mg/dl/unit * Changing carb ratio to 1 unit per 8 grams CHO consumed * Changing goal range to Low 110 mg/dL - High 140 mg/dL * Please note that the plan above was derived based on current level of insulin resistance and hospital stress. These recommendations are appropriate for inpatient admission only. Plan of care upon discharge will need to be reassessed to avoid potential outpatient hypo/hyperglycemia. Thank you.
[2016-10-04 14:20] VITALS: BP 147/76; PULSE 100; TEMP 36.4; O2SAT 97
--- NOTE | 2016-10-04 15:31 | Progress Note ---
Medicine Progress Note Date & Time of Visit: Oct 04, 2016 at 15:12. Subjective patient seen resting in bed, alert follows some simple commands, nods to questions denies chest pain, dyspnea, headache HR controlled able to move right lower extremity more, still has right upper extremity paresis still aphasic no other issues Objective Last 8 Hrs Date Time Temp Pulse Resp B/P (MAP) Pulse Ox O2 Delivery O2 Flow Rate FiO2 10/04/16 14:20 36.4 100 18 97 Room Air 10/04/16 12:02 Room Air 10/04/16 11:44 36.4 100 18 147/76 (99) 97 10/04/16 09:41 85 150/76 (100) 10/04/16 08:05 Room Air 10/04/16 07:46 36.7 118 18 167/111 (129) 99 Room Air Physical Exam: General- not in distress, no accessory muscle use Neck- no JVD Lungs- clear breath sounds bilaterally, no rales/wheezes Heart-normal rate, irregularly irregular rhythm Abdomen- normal bowel sounds, soft, nontender Extremities- mild right hand edema, no warmth/tenderness; no calf tenderness/ edema Neuro- alert, follows some simple commands aphasic right upper ext 0/5 motor strength; right lower ext 3/5 motor strength left side 5/5 Skin- warm & dry Laboratory Results: Last 24 Hours Test 10/03/16 16:05 10/03/16 20:16 10/04/16 05:19 10/04/16 07:03 Bedside Glucose 184 mg/dl 92 mg/dl 90 mg/dl Sodium Level 143 mmol/L Potassium Level 3.8 mmol/L Chloride Level 112 mmol/L Carbon Dioxide Level 24 mmol/L Anion Gap 7.0 mmol/L Blood Urea Nitrogen 27 mg/dl Creatinine 1.30 mg/dl Est Creatinine Clear Calc Drug Dose 46.5 ml/min Estimated GFR () 56.9 Estimated GFR (Non- 49.1 BUN/Creatinine Ratio 20.4 Random Glucose 75 mg/dl Calcium Level 8.3 mg/dl Magnesium Level 2.3 mg/dl Test 10/04/16 10:43 Bedside Glucose 127 mg/dl Assessment & Plan 88 year old male with history DM, HTN, afib -acute stroke deep right hemiparesis ACUTE CVA, LEFT MCA INFARCT WITH POSSIBLE PETECHIAL HEMORRHAGE POSSIBLE LEFT MCA OCCLUSION IN THE SETTING OF NEW ATRIAL FIBRILLATION - found unresponsive at home - CT head : 1. Hypodense area within the left frontotemporal region and left basal ganglia consistent with an acute to subacute left MCA territory infarct. 2. Small old infarct within the left occipital lobe. 3. No acute hemorrhage identified. 4. Right scalp/facial subcutaneous edema/swelling. 09/30/16: repeat CT head shows: 1. Subacute left MCA infarct. Stable mild mass effect. 2. Possible left MCA artery thrombus. 3. Possible foci of petechial hemorrhage within the infarct. No large hemorrhage is visualized. - Neurology - Dr. Mon evaluated the patient because of foci of petechial hemorrhage, advised to hold Aspirin, or any anticoagulation for now repeat CT head November 06, 2016, then possibly resume Aspirin when no hemorrhage found, discuss with Neurologist Dr. Mon/Dr. Delgadillo - needs to ff up with Neurologist Dr. Mon/Dr. 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 Not yet ready for oral intake. s/p Video Swallow Study Aspiration was seen with the nectar thick liquid and thin barium textures. 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 The following is recommended: 1.Pureed diet and HONEY thick liquids. 2.Aspiration precautions. Fully upright for all p.o. intake and for 30-60 minutes after meals. Stringent oral care to include brushing the teeth and all surfaces of the mouth and tongue to reduce oral bacteria that can be aspirated in saliva. Crush medications and place in a carrier such as applesauce or pudding. 3.Safe swallow strategies: Alternate solids and liquids. Rest breaks as needed. 4.This patient would benefit from continued speech therapy services in acute care, focusing on dysphagia therapy and for communication skills. 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 -- continue Speech Therapy APHASIA, RIGHT SIDED HEMIPARESIS - continue PT and OT NEW DIAGNOSIS OF ATRIAL FIBRILLATION - anticoagulation contraindicated at this time due to large MCA stroke, petechial hemorrhage - increased Metoprolol to 50mg BID for better heart rate control, HR improved - evaluated by [employer] Dr. Vega will need to reassess aspirin and anticoagulation options as outpatient - monitor Heart Rate UTI Urine culture: E Coli resistant to Ampicillin, Fluoroquinolone on Rocephin IV Day 4 change to Cefuroxime x 6 more days to complete 10 days HISTORY OF DM 2 A1c 10.8 - on Glipizide and Pioglitazone as outpatient - continue Lantus and Insulin Sliding Scale Lantus to 12 units SQ Q HS correction factor to 25 mg/dl/unit carb ratio to 1 unit per 8 grams CHO consumed goal range to Low 110 mg/dL - High 140 mg/dL - monitor HISTORY OF HYPERTENSION - hold BP meds for now to maintain BP on the high side post stroke - Clonidine PRN for syst BP > 180 HLD - increased Simvastatin to 40mg daily BPH - resume Terazosin 2mg daily when BP stable . DVT PROPHYLAXIS high risk due to dense hemiparesis scd and teds avoid pharmacological anticoagulation for CT finding of intracranial hemorrhage DISPOSITION d/c to [facility] today ff up with Neurologist Dr. Mon/Dr. Delgadillo and [employer] Dr. Vega in 2 weeks UPDATED SON TOMMY, HE IS AGREEABLE AND COMFORTABLE WITH PLAN OF CARE Current Inpatient Medications: Current Inpatient Medications Medications (Trade) Dose Ordered Sig/Tova Route Start Time Stop Time Status Last Admin Dose Admin Glucose (Glucose 40% Gel) 15-30 GRAMS 15 GRAMS... UD PRN PO 09/28/16 20:45 10/28/16 20:44 Glucose (Glucose Chew Tab) 4-8 Tablets 4 Tabl... UD PRN PO 09/28/16 20:45 10/28/16 20:44 Dextrose (Dextrose 50% 50ML Syringe) 25-50ML OF 50% DW IV FOR... UD PRN IV 09/28/16 20:45 10/28/16 20:44 Glucagon (Glucagon Inj) 1 mg UD PRN SQ 09/28/16 20:45 10/28/16 20:44 Miscellaneous Information (Consult Glycemic Management Pharmacy) 1 ea UD N/A 09/28/16 20:41 10/28/16 20:40 Insulin Aspart (novoLOG ASPART) SLIDING SCALE If C... ACHS SC 10/01/16 11:00 10/31/16 10:59 10/04/16 07:00 3 UNITS Clonidine HCl (Catapres Tab) 0.1 mg Q6H PRN PO 10/01/16 14:15 10/31/16 14:14 Simvastatin (Zocor Tab) 40 mg PM PO 10/02/16 21:00 11/01/16 20:59 10/03/16 21:07 40 MG Potassium Chloride/Sodium Chloride 1,000 ml @ 60 mls/hr [id number] IV 10/02/16 14:45 11/01/16 14:44 10/04/16 00:39 60 MLS/HR Metoprolol Tartrate (Lopressor Tab) 50 mg BID PO 10/03/16 21:00 10/31/16 20:59 10/04/16 07:36 50 MG Insulin Glargine (Lantus Solostar Pen) 12 unit QDD SC 10/04/16 16:45 11/03/16 16:44
[2016-10-04] MEDS ORDERED: METO50TA17 PO (15:36)
[2016-10-04] MEDS ORDERED: ZCR40 PO (15:36)
[2016-10-04] MEDS ORDERED: INSDGIPEN SC (15:36)
[2016-10-04] MEDS ORDERED: NVLGIPEN SC (15:36)
[2016-10-04] MEDS ORDERED: CEFU1TAB33 PO (15:36)
[2016-10-04] MEDS ORDERED: CTP1X PO (15:36)
--- NOTE | 2016-10-04 15:46 | Discharge Instructions ---
Discharge Instructions Date of Service Oct 04, 2016. Admission Reason for Admission: Acute Ischemic Stroke Discharge Discharge Diagnosis / Problem: ACUTE CEREBROVASCULAR ACCIDENT Discharge Goals Goal(s): Diagnostic testing, Therapeutic intervention Activity Recommendations Activity Level: Bedrest Therapies: Physical Therapy, Occupational Therapy, Speech Therapy . Additional Information Patient informed of condition: Yes Advance Directives: No (UNKNOWN) DNR: No (PATIENT IS FULL CODE) Level of Care: Acute Rehab Communicable Disease: No Prognosis: Stable Brock Catheter: Yes Instructions / Follow-Up Instructions / Follow-Up REPEAT CT HEAD ON OCTOBER 07, 2016. DISCUSS WITH NEUROLOGIST DR. RAZO/DR. CASIANO RE: POSSIBLE RE-STARTING OF ASPIRIN. NO ASPIRIN, ANTICOAGULATION, NSAIDs UNTIL CLEARED BY NEUROLOGIST (RE: PETECHIAL HEMORRHAGE ON CT HEAD). MONITOR BLOOD PRESSURE AND HEART RATE DAILY. MONITOR BLOOD GLUCOSE. 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 The following is recommended: 1.Pureed diet and HONEY thick liquids. 2.Aspiration precautions. Fully upright for all p.o. intake and for 30-60 minutes after meals. Stringent oral care to include brushing the teeth and all surfaces of the mouth and tongue to reduce oral bacteria that can be aspirated in saliva. Crush medications and place in a carrier such as applesauce or pudding. 3.Safe swallow strategies: Alternate solids and liquids. Rest breaks as needed. 4.This patient would benefit from continued speech therapy services in acute care, focusing on dysphagia therapy and for communication skills. 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 PLEASE REFER TO ACCOMPANYING HOSPITAL DISCHARGE SUMMARY. Current Hospital Diet Patient's current hospital diet: Diabetes Type 2 Diet Discharge Diet Recommended Diet: AHA Diet (Heart Healthy), Diabetes Type 2 Diet Diet Texture: Pureed (blended smooth) Liquid Consistency: Honey Thick Procedures Procedures Performed: CT HEAD, VIDEOFLUOROSCOPIC SWALLOW STUDY Pending Studies Studies pending at discharge: yes List of pending studies: REPEAT CT HEAD ON 10/07/16; PLEASE REFER TO DISCHARGE SUMMARY FOR FURTHER DETAILS. Physician Orders On Transfer Special Precautions: REPEAT CT HEAD ON OCTOBER 07, 2016. DISCUSS WITH NEUROLOGIST DR. RAZO/DR. CASIANO RE: POSSIBLE RE-STARTING OF ASPIRIN. NO ASPIRIN, ANTICOAGULATION, NSAIDs UNTIL CLEARED BY NEUROLOGIST (RE: PETECHIAL HEMORRHAGE ON CT HEAD). MONITOR BLOOD PRESSURE AND HEART RATE DAILY. MONITOR BLOOD GLUCOSE. 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 The following is recommended: 1.Pureed diet and HONEY thick liquids. 2.Aspiration precautions. Fully upright for all p.o. intake and for 30-60 minutes after meals. Stringent oral care to include brushing the teeth and all surfaces of the mouth and tongue to reduce oral bacteria that can be aspirated in saliva. Crush medications and place in a carrier such as applesauce or pudding. 3.Safe swallow strategies: Alternate solids and liquids. Rest breaks as needed. 4.This patient would benefit from continued speech therapy services in acute care, focusing on dysphagia therapy and for communication skills. 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 PLEASE REFER TO ACCOMPANYING HOSPITAL DISCHARGE SUMMARY. Laboratory Results Hemoglobin A1c Test 09/28/16 16:19 Range/Units Estimated Average Glucose 263 mg/dl Hemoglobin A1c 10.8 H 4.5-5.6 % Lipid Panel Test 09/29/16 04:40 Range/Units Triglycerides Level 128 0-150 mg/dl Cholesterol Level 219 H 0-200 mg/dl HDL Cholesterol 46 mg/dl Cholesterol/HDL Ratio 4.8 LDL Cholesterol, Calculated 147 mg/dl Medical Emergencies . Who to Call and When: Medical Emergencies: If at any time you feel your situation is an emergency, please call 911 immediately. . Non-Emergent Contact Non-Emergency issues call your: Primary Care Provider . Past History Medical & Surgical History: (1) Diabetes mellitus (2) UTI (urinary tract infection) (3) CVA (cerebral vascular accident) (4) Acute ischemic stroke (5) Hypertension (6) Atrial fibrillation (7) History of BPH . "Provider Documentation" section prepared by Prateek Collado. . Core Measure Problem Core Measures: Stroke Stroke Core Measures Reason no t-PA for Stroke: Contraindicated Reason no antithrom by day 2: Contraindicated Reason no antithrom at D/C: Contraindicated Reason no statin at D/C: Treatment provided - N/A Reason no anticoag w/a fib: Treatment provided - N/A
--- NOTE | 2016-10-04 15:53 | Discharge Summary ---
Discharge Summary Date of Service Oct 04, 2016. Discharge Summary Admission Date: Sep 28, 2016 at 18:31 Discharge Date: Oct 04, 2016 Discharge Disposition: Rehab Principal Diagnosis: ACUTE CVA, LEFT MCA INFARCT WITH POSSIBLE PETECHIAL HEMORRHAGE POSSIBLE LEFT MCA OCCLUSION IN THE SETTING OF NEW ATRIAL FIBRILLATION Secondary Diagnoses/Problems: PLEASE REFER TO HOSPITAL COURSE BELOW. Procedures: INITIAL CT HEAD 09/28/16: HEAD CT NONCONTRAST CT DOSE: 537.48 mGy.cm HISTORY: Altered mental status. Stroke TECHNIQUE: Multiaxial CT images of the head were performed without the use of intravenous contrast. Automated exposure control was utilized for this study. Comparison: None. Findings: Mild mucosal thickening within the right maxillary sinus and ethmoid air cells. The mastoid air cells are clear. The calvarium and skull base are intact. Right-sided scalp and facial subcutaneous edema or swelling. Small hypodensity within the left posterior occipital lobe likely represents an old infarct. No acute hemorrhage. Hypodensity within the left basal ganglia, left internal capsule, and left subinsular cortex which extend into the left posterior frontal lobe. This is consistent with a acute to subacute left MCA territory infarct. No acute hemorrhage identified. Mild mass effect along the left lateral ventricle. No significant midline shift. Impression: 1. Hypodense area within the left frontotemporal region and left basal ganglia consistent with an acute to subacute left MCA territory infarct. 2. Small old infarct within the left occipital lobe. 3. No acute hemorrhage identified. 4. Right scalp/facial subcutaneous edema/swelling. REPEAT CT HEAD 09/30/16: CT HEAD WITHOUT CONTRAST (CT) CLINICAL HISTORY: Stroke. Follow-up study. COMPARISON STUDY: No previous studies for comparison. TECHNIQUE: Axial CT of the brain is performed from the vertex to the skull base. IV contrast was not administered for this examination. CT DOSE: FINDINGS: There is evidence for a large left middle cerebral artery territory infarct with involvement of portions of the left temporal parietal and frontal lobes. There is also evidence for left basal ganglia involvement. There are foci of increased attenuation consistent with minimal petechial hemorrhage. No large hematoma is visualized. There is mass effect with effacement of the left lateral ventricle. There are patchy white matter hypodensities likely on a small vessel basis. There is no evidence of pathologic ventricular dilatation. There is no evidence of acute sinusitis IMPRESSION: 1. Subacute left MCA infarct with mild mass effect 2. Increasing foci of petechial hemorrhage. No large hemorrhage is visualized. CAROTID ARTERY US: 1. There is no sonographic evidence of hemodynamically significant stenosis in the right or left carotid arterial system. 2. Antegrade flow is shown in the vertebral arteries. Consultations: NEUROLOGIST DR. RAZO, [employer] SUPERVISOR DR. PEREZ Pending Studies/Follow-Up: REPEAT CT HEAD ON 10/07/16; WILL NEED TO DISCUSS WITH NEUROLOGIST RE: STARTING ASPIRIN Medication Reconciliation New Medications: Cefuroxime Axetil (Cefuroxime Axetil) 250 Mg Tab 1 TAB PO BID for 6 Days, #12 TBS Clonidine HCl (Clonidine HCl) 0.1 Mg Tab 0.1 MG PO Q6H PRN for systolic bp > 180 for 30 Days, #20 TAB Insulin Aspart (Novolog Flexpen) 100 Units/Ml Inj 0 UNITS SC ACHS for 30 Days per sliding scale: correction factor 25 mg/dl/unit carb ratio 1 unit per 8 grams CHO consumed goal range to Low 110 mg/dL - High 140 mg/dL Insulin Glargine (Lantus Solostar) 100 Unit/Ml Inj 12 UNIT SC QDD for 30 Days Metoprolol Tartrate (Metoprolol Tartrate) 50 Mg Tab 50 MG PO BID for 30 Days, #60 TAB 2 Refills Simvastatin (Simvastatin) 40 Mg Tab 40 MG PO PM for 30 Days, #30 TAB 2 Refills Continued Medications: Acetaminophen Tab (Tylenol) 325 Mg Tab 650 MG PO Q6 PRN for Pain Discontinued Medications: Amlodipine (Norvasc) Unknown Strength Tab PLEASE SEE COMMENT Furosemide (Lasix) Unknown Strength Tab PLEASE SEE COMMENT Glipizide (Glipizide Er) Unknown Strength Tab PLEASE SEE COMMENT Ibuprofen Tab (Advil) 200 Mg Tab 200-600 MG PO Q4H PRN for Pain Lisinopril (Prinivil) Unknown Strength Tab PLEASE SEE COMMENT Metoprolol Tartrate (Lopressor) (Lopressor) Unknown Strength Tab UNKNOWN IF TOPROL OR LOPRESSOR. SEE COMMENT. Pioglitazone (Actos) Unknown Strength Tab PLEASE SEE COMMENT Potassium Chloride (Micro-K Ext Rel) Unknown Strength Capcr PLEASE SEE COMMENT Simvastatin (Zocor) Unknown Strength Tab PLEASE SEE COMMENT Terazosin Hcl (Hytrin) Unknown Strength Cap PLEASE SEE COMMENT Admission Information HPI (per Admitting provider): 88 yo M from [facility] who sees physicians at the [facility] in [place] only, and not regularly per son, presents to the ER via EMS after being found down on the floor of his home alert but altered and waving his left arm in the air. He had noticed some urine present on the floor. CT head reveals a left frontotemporal and basal ganglia stroke. Per his oldest son, he was last seen yesterday around 8:30pm until he was found in this condition at 1:30pm the next day (today). He lives alone and had recently lost his in May. Per his son , he is active and was just driving yesterday and was cutting the grass earlier this week. Son states that although his father had diabetes and probably other conditions, he never took medications for anything and chose not to see a doctor. He states that although he went to the [facility] in [place], he was only seen for his eyes and this was a rare occasion. There is a list of medications that was pulled from the cabinet by EMS, however, there are no dosages on the med list. The family suspects that he gets his medications at the [facility] in [facility]. When I called to verify when he last filled meds, they were already closed. Therefore, medication reconciliation was unable to be performed this evening. I also requested records from the [facility] in [place]. The family reports that the patient was recently feeling well and not showing any symptoms or having issues prior to last night. They are unsure of any medication or food allergies but don't think he has any. Physical Exam (per Admitting): GEN: WNWD, expressive and receptive aphasia, appears alert but unable to communicate or follow instructions HEENT: NC/AT, PERRL, normal sclerae/conjunctivae, R facial droop CARDIO: tachy, S1/2 heard without m/g/r LUNGS: CTA bilaterally, no crackles, rales or wheezes, good diaphragmatic excursion ABD: soft, non-distended, no rebound or guarding, +BS EXTREMITY: RP and DP palpable 2+ bilat, no LE swelling or edema, extremities are warm and well-perfused NEURO: expressive/receptive aphasia, Leftward gaze, R facial droop, R arm/leg is flacid, able to move L arm and leg but cannot follow instructions to assess strength. Cannot assess sensation or coordination 2/2 AMS. Knee reflex 2/4 bilaterally with neg babinski. MUSC: could not assess strength but clear weakness of the right side. SKIN: warm and dry, small 1cmm abrasion on the lower leg. Hospital Course 88 year old male with history DM, HTN, afib -acute stroke deep right hemiparesis ACUTE CVA, LEFT MCA INFARCT WITH POSSIBLE PETECHIAL HEMORRHAGE POSSIBLE LEFT MCA OCCLUSION IN THE SETTING OF NEW ATRIAL FIBRILLATION - found unresponsive at home - initial CT head 09/28/16 : 1. Hypodense area within the left frontotemporal region and left basal ganglia consistent with an acute to subacute left MCA territory infarct. 2. Small old infarct within the left occipital lobe. 3. No acute hemorrhage identified. 4. Right scalp/facial subcutaneous edema/swelling. repeat CT head 09/30/16: 1. Subacute left MCA infarct. Stable mild mass effect. 2. Possible left MCA artery thrombus. 3. Possible foci of petechial hemorrhage within the infarct. No large hemorrhage is visualized. - Neurology - Dr. Mon/Leona evaluated the patient because of foci of petechial hemorrhage, advised to hold Aspirin, or any anticoagulation for now repeat CT head November 06, 2016, then possibly resume Aspirin when no hemorrhage found,please discuss with Neurologist Dr. Mon/Dr. Razo - needs to ff up with Neurologist Dr. Mon/Dr. 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 Not yet ready for oral intake. s/p Video Swallow Study Aspiration was seen with the nectar thick liquid and thin barium textures. 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 The following is recommended: 1.Pureed diet and HONEY thick liquids. 2.Aspiration precautions. Fully upright for all p.o. intake and for 30-60 minutes after meals. Stringent oral care to include brushing the teeth and all surfaces of the mouth and tongue to reduce oral bacteria that can be aspirated in saliva. Crush medications and place in a carrier such as applesauce or pudding. 3.Safe swallow strategies: Alternate solids and liquids. Rest breaks as needed. 4.This patient would benefit from continued speech therapy services in acute care, focusing on dysphagia therapy and for communication skills. 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 -- continue Speech Therapy APHASIA, RIGHT SIDED HEMIPARESIS - continue PT and OT NEW DIAGNOSIS OF ATRIAL FIBRILLATION - anticoagulation contraindicated at this time due to large MCA stroke, petechial hemorrhage - increased Metoprolol to 50mg BID for better heart rate control, HR improved - evaluated by [employer] Operator Dr. Perez will need to reassess aspirin and anticoagulation options as outpatient - monitor Heart Rate - ff up with [employer] Dr. Perez in 2 weeks UTI Urine culture: E Coli resistant to Ampicillin, Fluoroquinolone on Rocephin IV Day 4 change to Cefuroxime x 6 more days to complete 10 days HISTORY OF DM 2 A1c 10.8 - on Glipizide and Pioglitazone as outpatient - continue Lantus and Insulin Sliding Scale Lantus to 12 units SQ Q HS correction factor to 25 mg/dl/unit carb ratio to 1 unit per 8 grams CHO consumed goal range to Low 110 mg/dL - High 140 mg/dL - monitor HISTORY OF HYPERTENSION - hold BP meds for now to maintain BP on the high side post stroke - Clonidine PRN for syst BP > 180 HLD - increased Simvastatin to 40mg daily BPH - resume Terazosin 2mg daily when BP stable . DVT PROPHYLAXIS scd and teds avoid pharmacological anticoagulation for CT finding of intracranial hemorrhage until cleared by Neurologist DISPOSITION d/c to [facility] today ff up with Neurologist Dr. Mon/Dr. Razo and [employer] Dr. Perez in 2 weeks Total time spent on discharge = 55 minutes This includes examination of the patient, discharge planning, medication reconciliation, and communication with other providers. Discharge Instructions Discharge Instructions Date of Service Oct 04, 2016. Admission Reason for Admission: Acute Ischemic Stroke Discharge Discharge Diagnosis / Problem: ACUTE CEREBROVASCULAR ACCIDENT Discharge Goals Goal(s): Diagnostic testing, Therapeutic intervention Activity Recommendations Activity Level: Bedrest Therapies: Physical Therapy, Occupational Therapy, Speech Therapy . Additional Information Patient informed of condition: Yes Advance Directives: No (UNKNOWN) DNR: No (PATIENT IS FULL CODE) Level of Care: Acute Rehab Communicable Disease: No Prognosis: Stable Brock Catheter: Yes Instructions / Follow-Up Instructions / Follow-Up REPEAT CT HEAD ON OCTOBER 07, 2016. DISCUSS WITH NEUROLOGIST DR. RAZO/DR. MON RE: POSSIBLE RE-STARTING OF ASPIRIN. NO ASPIRIN, ANTICOAGULATION, NSAIDs UNTIL CLEARED BY NEUROLOGIST (RE: PETECHIAL HEMORRHAGE ON CT HEAD). MONITOR BLOOD PRESSURE AND HEART RATE DAILY. MONITOR BLOOD GLUCOSE. 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 The following is recommended: 1.Pureed diet and HONEY thick liquids. 2.Aspiration precautions. Fully upright for all p.o. intake and for 30-60 minutes after meals. Stringent oral care to include brushing the teeth and all surfaces of the mouth and tongue to reduce oral bacteria that can be aspirated in saliva. Crush medications and place in a carrier such as applesauce or pudding. 3.Safe swallow strategies: Alternate solids and liquids. Rest breaks as needed. 4.This patient would benefit from continued speech therapy services in acute care, focusing on dysphagia therapy and for communication skills. 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 PLEASE REFER TO ACC[facility]PANYING HOSPITAL DISCHARGE SUMMARY. Current Hospital Diet Patient's current hospital diet: Diabetes Type 2 Diet Discharge Diet Recommended Diet: AHA Diet (Heart Healthy), Diabetes Type 2 Diet Diet Texture: Pureed (blended smooth) Liquid Consistency: Honey Thick Procedures Procedures Performed: CT HEAD, VIDEOFLUOROSCOPIC SWALLOW STUDY Pending Studies Studies pending at discharge: yes List of pending studies: REPEAT CT HEAD ON 10/07/16; PLEASE REFER TO DISCHARGE SUMMARY FOR FURTHER DETAILS. Physician Orders On Transfer Special Precautions: REPEAT CT HEAD ON OCTOBER 07, 2016. DISCUSS WITH NEUROLOGIST DR. RAZO/DR. MON RE: POSSIBLE RE-STARTING OF ASPIRIN. NO ASPIRIN, ANTICOAGULATION, NSAIDs UNTIL CLEARED BY NEUROLOGIST (RE: PETECHIAL HEMORRHAGE ON CT HEAD). MONITOR BLOOD PRESSURE AND HEART RATE DAILY. MONITOR BLOOD GLUCOSE. 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 The following is recommended: 1.Pureed diet and HONEY thick liquids. 2.Aspiration precautions. Fully upright for all p.o. intake and for 30-60 minutes after meals. Stringent oral care to include brushing the teeth and all surfaces of the mouth and tongue to reduce oral bacteria that can be aspirated in saliva. Crush medications and place in a carrier such as applesauce or pudding. 3.Safe swallow strategies: Alternate solids and liquids. Rest breaks as needed. 4.This patient would benefit from continued speech therapy services in acute care, focusing on dysphagia therapy and for communication skills. 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 PLEASE REFER TO ACCOMPANYING HOSPITAL DISCHARGE SUMMARY. Laboratory Results Hemoglobin A1c Test 09/28/16 16:19 Range/Units Estimated Average Glucose 263 mg/dl Hemoglobin A1c 10.8 H 4.5-5.6 % Lipid Panel Test 09/29/16 04:40 Range/Units Triglycerides Level 128 0-150 mg/dl Cholesterol Level 219 H 0-200 mg/dl HDL Cholesterol 46 mg/dl Cholesterol/HDL Ratio 4.8 LDL Cholesterol, Calculated 147 mg/dl Medical Emergencies . Who to Call and When: Medical Emergencies: If at any time you feel your situation is an emergency, please call 911 immediately. . Non-Emergent Contact Non-Emergency issues call your: Primary Care Provider . Past History Medical & Surgical History: (1) Diabetes mellitus (2) UTI (urinary tract infection) (3) CVA (cerebral vascular accident) (4) Acute ischemic stroke (5) Hypertension (6) Atrial fibrillation (7) History of BPH . "Provider Documentation" section prepared by Prateek Collado. . Core Measure Problem Core Measures: Stroke Stroke Core Measures Reason no t-PA for Stroke: Contraindicated Reason no antithrom by day 2: Contraindicated Reason no antithrom at D/C: Contraindicated Reason no statin at D/C: Treatment provided - N/A Reason no anticoag w/a fib: Treatment provided - N/A
[2016-10-04] MEDS ORDERED: INSULIN GLARGINE SOLOSTAR 100 UNITS/ML 3 ML PEN SC SCH ×2 (16:45)
--- NOTE | 2016-10-06 08:28 | EDITING REQUIRED CODING QUERY ---
CODING QUERY To promote full compliance with coding requirements relating to patient care, provider participation is requested in all cases of legal researcher uncertainty. Please assist us with the question(s) below: Coding Question(s): DKA, Diabetic Ketoacidosis, is documented on the H&P but there is no documentation in the Progress Notes and Discharge Summary. Please clarify below, regarding DKA. ( ) DKA was present and treated early in the admission ( X) DKA was not present during admission Physician's Response(s): Thank you Lila Barajas Principal Diagnosis: "_that condition established after study, to be chiefly responsible for occasioning the admission of the patient to the hospital for care." Co-Existing Principal Diagnosis: "_when two or more diagnoses equally meet the criteria for principal diagnosis as determined by the circumstances of admission, diagnostic work up, and/or therapy provided, and the Alphabetic Index, Tabular List, or another coding guideline does not provide sequencing direction, any one of the diagnoses may be sequenced first." "When the physician has documented what appears to be a current diagnosis in the body of the record, but has not included the diagnosis in the final diagnostic statement, the physician should be asked whether the diagnosis should be added." (Source Coding [facility] 2 QTR90. p3-4)
== END 2016-10-04 16:21 | DRG 308 ==
LOC: EDBD → C.EDC 15:33 → C.2T 18:31 → ENRESERV 19:16
PROVIDERS: ADMIT Hospitalist; ATTEND Internal Medicine
DX: I48.91 Unspecified atrial fibrillation (principal); I63.312 Cerebral infarction due to thrombosis of left middle cerebral artery; G81.91 Hemiplegia, unspecified affecting right dominant side; N39.0 Urinary tract infection, site not specified; R47.01 Aphasia; B96.20 Unspecified Escherichia coli [E. coli] as the cause of diseases classified elsewhere; Z16.11 Resistance to penicillins; R23.3 Spontaneous ecchymoses; Z16.23 Resistance to quinolones and fluoroquinolones; R29.810 Facial weakness; R29.729 NIHSS score 29; R13.12 Dysphagia, oropharyngeal phase; E11.9 Type 2 diabetes mellitus without complications; I11.9 Hypertensive heart disease without heart failure; N40.0 Benign prostatic hyperplasia without lower urinary tract symptoms; Z79.899 Other long term (current) drug therapy; Z79.84 Long term (current) use of oral hypoglycemic drugs; Z86.73 Personal history of transient ischemic attack (TIA), and cerebral infarction without residual deficits

== ENCOUNTER → 2016-10-07 | Outpatient (CLI) | payer OTHER ==
[~2016-10-07] MED LIST: ACET325T96 PO; CEFU1TAB33 PO; CTP1X PO; INSDGIPEN SC; METO50TA17 PO; NVLGIPEN SC; ZCR40 PO
--- NOTE | 2016-10-07 15:55 | DIAGNOSTIC IMAGING REPORT ---
HEAD CT NONCONTRAST CT DOSE: 614.27 mGy.cm HISTORY: Stroke follow-up F/U CVA TECHNIQUE: Multiaxial CT images of the head were performed without the use of intravenous contrast. Comparison: 09/30/2016 Findings: The paranasal sinuses and mastoid air cells are clear. Left middle cerebral arterial infarct essentially unchanged in appearance from the prior study. The small petechial hemorrhagic component is perhaps slightly diminished. There is partial effacement of left cerebral sulci as compared to the right. Major midline shift is not appreciated. There is no major new or interval finding. Impression: 1. Relatively large left middle cerebral arterial territory infarct unchanged from the prior study. 2. Mild petechial hemorrhagic foci are slightly diminished in prominence considered consistent with normal evolutionary change. 3. No evidence for a new or interval process. Electronically signed by: Tobi Dickerson M.D. 10/07/2016 3:54 PM Dictated Date/Time: 10/07/2016 3:52 PM
== END | disposition home or self-care (01) ==
LOC: C.CTS 15:31 → EDBD 15:31
PROVIDERS: ATTEND Internal Medicine Critical Care Medicine
DX: Z86.73 Personal history of transient ischemic attack (TIA), and cerebral infarction without residual deficits (principal)